=== PATIENT | male | born 1980 | race Caucasian/White ===

== ENCOUNTER 2017-03-20 13:06 | Emergency (ER) | payer SELFPAY | END 2017-03-20 13:16 | disposition left against medical advice (07) | LOC: C.EDB 13:07 | DX: F10.239 Alcohol dependence with withdrawal, unspecified (principal) ==

== ENCOUNTER 2017-11-26 12:31 | Emergency (ER) | payer SELFPAY ==
[~2017-11-26] VITALS: Ht 172.7 cm; Wt 76.5 kg
[~2017-11-26 12:31] MED LIST: NRN/300 PO
[2017-11-26] MEDS ORDERED: SODIUM CHLORIDE 0.9% 1000ML 1,000 ML IV STA (12:48)
[2017-11-26] MEDS ORDERED: MULTI-VITAMIN INFUSION INJ 10 ML, THIAMINE HCL INJ 100 MG, FoLIC ACID INJ 1 MG in SODIU... IV STA (12:48)
--- NOTE | 2017-11-26 12:48 | EMERGENCY ROOM VISIT NOTE ---
History Report prepared by Herminio: Roman Sumner Under the Supervision of: Dr. Stoney Wells M.D. First contact with patient: 12:34 Stated Complaint: ILLNESS History of Present Illness The patient is a 37 year old male with a history of alcohol abuse who presents to the Emergency Room via EMS with complaints of a persistent illness that started yesterday. He states that he has had a generalized illness, with nausea , vomiting, as well as congestion. He says that he has had diarrhea for the past week and a half. The patient notes that he was "beyond nauseated last night ", and had projectile vomiting. He states that he drinks about a gallon of vodka per day, and drank around 3/4ths of a gallon earlier this morning. He notes that his left hand went numb prior to arrival, so he called EMS. The patient states that he called, and then stood up and passed out. The patient's noted that the patient was unresponsive at that time, per the nursing staff. The patient notes that he has tried to stop drinking alcohol before, but has had withdrawal symptoms including seizures. He has been hospitalized for this before. The patient adds that he has no chronic medical conditions, but does have a history of pancreatitis. He says that he does not take any daily medications. The patient is a smoker. He notes no recent antibiotic use. Source of History: patient, nursing staff Onset: Yesterday Position: other (global) Quality: other (illness) Timing: other (persistent) Associated Symptoms: + LOC, + nausea, + vomiting, + diarrhea, + numbness ( left hand) Note: Associated symptoms: Congestion. Review of Systems See HPI for pertinent positives and negatives. A total of ten systems were reviewed and were otherwise negative. Past Medical & Surgical Medical Problems: (1) Alcohol Abuse-Unspec Family History No pertinent family history Social History Smoking Status: Current Every Day Smoker Alcohol Use: heavy Drug Use: none Marital Status: Housing Status: lives with family Occupation Status: employed Current/Historical Medications Scheduled Famotidine (Pepcid), 20 MG PO BID Ondasetron Odt (Zofran Odt), 4 MG SL Q6H Allergies Coded Allergies: Chlordiazepoxide (Verified Adverse Reaction, Unknown, DELIRIUM, 11/26/17) Physical Exam Vital Signs Date Time Temp Pulse Resp B/P (MAP) Pulse Ox O2 Delivery O2 Flow Rate FiO2 11/26/17 16:21 106 18 132/87 98 11/26/17 14:44 91 20 122/96 95 Room Air 11/26/17 14:01 75 16 129/81 99 Room Air 11/26/17 12:50 37.1 88 20 144/92 98 Room Air 11/26/17 12:45 96 Physical Exam GENERAL: Awake, alert, fatigued-appearing, in no distress HENT: Normocephalic, atraumatic. Dry mucous membranes. No evidence of tongue biting. EYES: Horizontal nystagmus. Normal conjunctiva. Sclera non-icteric. NECK: Supple. No nuchal rigidity. FROM. No JVD. RESPIRATORY: Clear to auscultation. CARDIAC: Regular rate, normal rhythm. Extremities warm and well perfused. Pulses equal. ABDOMEN: Soft, non-distended. No tenderness to palpation. No rebound or guarding. No masses. RECTAL: Deferred. MUSCULOSKELETAL: Chest examination reveals no tenderness. The back is symmetrical on inspection without obvious abnormality. There is no CVA tenderness to palpation. No joint edema. LOWER EXTREMITIES: Calves are equal size bilaterally and non-tender. No edema. No discoloration. NEURO: Normal sensorium. No sensory or motor deficits noted. Normal cerebellar function with [id number], alternating palms, [id number]-[id number] SKIN: No rash or jaundice noted. Medical Decision & Procedures ER Provider Diagnostic Interpretation: Radiology results as stated below per my review and radiologist interpretation: CT HEAD WITHOUT CONTRAST (CT) CLINICAL HISTORY: syncope COMPARISON STUDY: 09/20/2014 TECHNIQUE: Axial CT of the brain is performed from the vertex to the skull base. IV contrast was not administered for this examination. A dose lowering technique was utilized adhering to the principles of ALARA. CT DOSE: 537.48 mGy.cm FINDINGS: No intra or extra-axial mass lesions are visualized. There is no CT evidence of acute cortical infarction. There is no evidence of midline shift. There is no acute hemorrhage. No calvarial fractures are visualized. There are patchy white matter hypodensities likely on a small vessel basis. There is no evidence of pathologic ventricular dilatation. There is minor bilateral maxilla sinus mucosal thickening. There is moderate mucosal disease within the ethmoid sinuses. IMPRESSION: No acute intracranial findings Electronically signed by: Christian Ernst M.D. 11/26/2017 1:30 PM Dictated Date/Time: 11/26/2017 1:29 PM CHEST ONE VIEW PORTABLE CLINICAL HISTORY: Pain, radiating to the abdomen. COMPARISON STUDY: 05/15/2017 FINDINGS: The cardiac and mediastinal contours are normal. There is no evidence of focal pulmonary consolidation. There is no evidence of failure. No pleural effusions are visualized.[ No free intraperitoneal air is visualized. There is an old left distal clavicular deformity. IMPRESSION: No active disease in the chest. Electronically signed by: Christian Ernst M.D. 11/26/2017 1:10 PM Dictated Date/Time: 11/26/2017 1:10 PM Laboratory Results 11/26/17 13:05 Red Blood Count 4.47, Mean Corpuscular Volume 93.3, Mean Corpuscular Hemoglobin 32.9, Mean Corpuscular Hemoglobin Concent 35.3, Mean Platelet Volume 8.4, Neutrophils (%) (Auto) 47.7, Lymphocytes (%) (Auto) 43.3, Monocytes (%) (Auto) 6.1, Eosinophils (%) (Auto) 2.3, Basophils (%) (Auto) 0.3, Neutrophils # (Auto) 4.38, Lymphocytes # (Auto) 3.98, Monocytes # (Auto) 0.56, Eosinophils # (Auto) 0.21, Basophils # (Auto) 0.03 11/26/17 13:05 Test 11/26/17 13:05 White Blood Count 9.19 K/uL (4.8-10.8) Red Blood Count 4.47 M/uL (4.7-6.1) Hemoglobin 14.7 g/dL (14.0-18.0) Hematocrit 41.7 % (42-52) Mean Corpuscular Volume 93.3 fL (80-100) Mean Corpuscular Hemoglobin 32.9 pg (25-34) Mean Corpuscular Hemoglobin Concent 35.3 g/dl (32-36) Platelet Count 354 K/uL (130-400) Mean Platelet Volume 8.4 fL (7.4-10.4) Neutrophils (%) (Auto) 47.7 % Lymphocytes (%) (Auto) 43.3 % Monocytes (%) (Auto) 6.1 % Eosinophils (%) (Auto) 2.3 % Basophils (%) (Auto) 0.3 % Neutrophils # (Auto) 4.38 K/uL (1.4-6.5) Lymphocytes # (Auto) 3.98 K/uL (1.2-3.4) Monocytes # (Auto) 0.56 K/uL (0.11-0.59) Eosinophils # (Auto) 0.21 K/uL (0-0.5) Basophils # (Auto) 0.03 K/uL (0-0.2) RDW Standard Deviation 48.1 fL (36.4-46.3) RDW Coefficient of Variation 14.1 % (11.5-14.5) Immature Granulocyte % (Auto) 0.3 % Immature Granulocyte # (Auto) 0.03 K/uL (0.00-0.02) Prothrombin Time 10.3 SECONDS (9.0-12.0) Prothromb Time International Ratio 1.0 (0.9-1.1) Anion Gap 14.0 mmol/L (3-11) Est Creatinine Clear Calc Drug Dose 95.0 ml/min Estimated GFR () 107.6 Estimated GFR (Non- 92.8 BUN/Creatinine Ratio 6.5 (10-20) Calcium Level 8.1 mg/dl (8.5-10.1) Magnesium Level 2.1 mg/dl (1.8-2.4) Total Bilirubin 0.4 mg/dl (0.2-1) Direct Bilirubin < 0.1 mg/dl (0-0.2) Aspartate Amino Transf (AST/SGOT) 26 U/L (15-37) Alanine Aminotransferase (ALT/SGPT) 27 U/L (12-78) Alkaline Phosphatase 45 U/L (45-117) Troponin I < 0.015 ng/ml (0-0.045) Total Protein 7.1 gm/dl (6.4-8.2) Albumin 3.7 gm/dl (3.4-5.0) Lipase 527 U/L (73-393) Ethyl Alcohol mg/dL 315.0 mg/dl (0-3) Laboratory results reviewed by me Medications Administered Medications (Trade) Dose Ordered Sig/Guille Route Start Time Stop Time Status Last Admin Dose Admin Multivitamins 10 ml/Thiamine HCl 100 mg/Folic Acid 1 mg/Sodium Chloride 1,011.2 ml @ 500 mls/ hr Q2H2M STAT IV 11/26/17 12:48 11/26/17 14:49 DC 11/26/17 13:32 500 MLS/HR Sodium Chloride 1,000 ml @ 999 mls/hr Q1H1M STAT IV 11/26/17 12:48 11/26/17 13:48 DC 11/26/17 14:00 999 MLS/HR Lorazepam (Ativan Tab) 1 mg NOW STAT PO 11/26/17 12:55 11/26/17 12:56 DC 11/26/17 13:21 1 MG Nicotine (Nicoderm Cq 21MG Patch) 1 patch NOW STAT TD 11/26/17 12:55 11/26/17 12:56 DC 11/26/17 13:21 1 PATCH Lorazepam (Ativan Tab) 1 mg NOW STAT PO 11/26/17 14:27 11/26/17 14:28 DC 11/26/17 14:44 1 MG Diazepam (Valium Tab) 5 mg NOW STAT PO 11/26/17 15:35 11/26/17 15:36 DC 11/26/17 16:14 5 MG ECG Per My Interpretation Indication: nausea Rate (beats per minute): 84 Rhythm: normal sinus Findings: no acute ischemic change, other (sinus arrhythmia, normal axis) ED Course 1242: The patient was evaluated in room A3. A complete history and physical exam was performed. 1517: I reevaluated the patient and he is resting comfortably. Discussed results and discharge instructions: he verbalized understanding and agreement. The patient is ready for discharge. Medical Decision I reviewed the patient's past medical history, medications, and the nursing notes as described above. Differential diagnosis: Etiologies such as vasovagal event, infection, hypoglycemia, electrolyte abnormalities, cardiac sources, intracerebral event, toxicologic, neurologic, as well as others were entertained. The patient is a 37-year-old gentleman with a past medical history of alcohol abuse, history of alcohol withdrawal and alcohol withdrawal seizures who presents emergency department after having syncopal episode in the setting of feeling chest pain left arm numbness per hpi. On arrival the patient is fatigued appearing but no acute distress, afebrile stable vital signs. Neuro intact. He does have the odor of alcohol and reports drinking more than a liter of vodka daily. Lipase marginally elevated in the 500s. Otherwise labs unremarkable including WBC and troponin within normal limits. Chest x-ray and CT head negative. Patient feeling improved after IV fluids, banana bag, oral Ativan. I discussed with the patient that he has possible findings consistent with early pancreatitis which will likely only get worse with his continued alcohol use and thus recommended that the patient consider admission for further hydration and an acute alcohol withdrawal treatment with likely transition to detox facility. However, patient is equivocal about being interested in detox and is also concerned about being admitted and not having insurance. Prefers discharge. In ED no gross evidence of etoh withdrawal other than restlessness as patient arrive with etoh in 300s however given several doses of benzos to help with likely eventual withdrawal sx. I emphasized that the patient should not stop drinking abruptly on his own rather he should seek detox and f/u with [facility] to repeat his lipase and reassess his sx. Findings and plan for follow-up reviewed with patient and at bedside. Patient and agreeable and d/c'd per discharge instructions. Medication Reconcilliation Current Medication List: was personally reviewed by me Blood Pressure Screening Patient's blood pressure: Elevated blood pressure Blood pressure disposition: Elevated BP felt to be situational Impression Primary Impression: Alcohol abuse Additional Impressions: Alcohol withdrawal Elevated lipase Syncope Dehydration Scribe Attestation The scribe's documentation has been prepared under my direction and personally reviewed by me in its entirety. I confirm that the note above accurately reflects all work, treatment, procedures, and medical decision making performed by me. Departure Information Dispostion Home / Self-Care Prescriptions Famotidine (PEPCID) 20 Mg Tab 20 MG PO BID for 7 Days, #14 TAB Prov: Stoney Wells M.D. 11/26/17 Ondasetron Odt (ZOFRAN ODT) 4 Mg Tab 4 MG SL Q6H for Nausea, #10 TAB Prov: Stoney Wells M.D. 11/26/17 Referrals Davy Garvin D.OLewis (PCP) Patient Instructions ED Alcohol Abuse, ED Alcohol Intoxication, ED Dehydration, ED Pancreatitis, ED Withdrawal Alcohol, Lipase, My [facility], Syncope Causes Additional Instructions Please follow up with [facility] to establish primary care physician in the next 1-3 days for re-evaluation and to repeat your lipase level that was elevated today in the 500s. You symptoms today are most likely due to your alcohol abuse/withdrawal and associated dehydration. You should seriously consider stopping your alcohol use but you SHOULD NOT STOP ABRUPTLY as this can provoke seizures. Rather wean your use until you are able to enter into a rehab program. Zofran for nausea as needed. Pepcid as needed for GI upset/acid reduction for possible gastritis related to your alcohol abuse. Drink plenty of fluids to ensure hydration. Return to the emergency department for worsening symptoms as described in the accompanying instructions. Problem Qualifiers
[2017-11-26 12:50] VITALS: TEMP 37.1; Ht 172.7 cm; Wt 76.5 kg
[2017-11-26] MEDS ORDERED: NICOTINE 21 MG/24 HR TDSY TD STA (12:55)
[2017-11-26] MEDS ORDERED: LORAZEPAM 1 MG TAB PO STA ×2 (12:55→14:27)
--- NOTE | 2017-11-26 13:12 | DIAGNOSTIC IMAGING REPORT ---
CHEST ONE VIEW PORTABLE CLINICAL HISTORY: Pain, radiating to the abdomen. COMPARISON STUDY: 05/15/2017 FINDINGS: The cardiac and mediastinal contours are normal. There is no evidence of focal pulmonary consolidation. There is no evidence of failure. No pleural effusions are visualized.[ No free intraperitoneal air is visualized. There is an old left distal clavicular deformity. IMPRESSION: No active disease in the chest. Electronically signed by: Christian Ernst M.D. 11/26/2017 1:10 PM Dictated Date/Time: 11/26/2017 1:10 PM
[2017-11-26 13:22] LABS: BASO % 0.3 %; BASO ABS # 0.03 K/uL (0-0.2); EOS % 2.3 %; EOS ABS # 0.21 K/uL (0-0.5); HEMATOCRIT 41.7 % (42-52); HEMOGLOBIN 14.7 g/dL (14.0-18.0); IG# 0.03 K/uL (0.00-0.02); LYMPH % 43.3 %; LYMPH ABS # 3.98 K/uL (1.2-3.4); MEAN CELL VOLUME 93.3 fL (80-100); MEAN CORPUSCULAR HEMOGLOBIN 32.9 pg (25-34); MEAN CORPUSCULAR HGB CONC 35.3 g/dl (32-36); MEAN PLATELET VOLUME 8.4 fL (7.4-10.4); MONO % 6.1 %; MONO ABS # 0.56 K/uL (0.11-0.59); NEUT % 47.7 %; NEUT ABS # 4.38 K/uL (1.4-6.5); PLATELET COUNT 354 K/uL (130-400); RED CELL DISTRIBUTION WIDTH CV 14.1 % (11.5-14.5); RED CELL DISTRIBUTION WIDTH SD 48.1 fL (36.4-46.3); WHITE BLOOD COUNT 9.19 K/uL (4.8-10.8)
--- NOTE | 2017-11-26 13:31 | DIAGNOSTIC IMAGING REPORT ---
CT HEAD WITHOUT CONTRAST (CT) CLINICAL HISTORY: syncope COMPARISON STUDY: 09/20/2014 TECHNIQUE: Axial CT of the brain is performed from the vertex to the skull base. IV contrast was not administered for this examination. A dose lowering technique was utilized adhering to the principles of ALARA. CT DOSE: 537.48 mGy.cm FINDINGS: No intra or extra-axial mass lesions are visualized. There is no CT evidence of acute cortical infarction. There is no evidence of midline shift. There is no acute hemorrhage. No calvarial fractures are visualized. There are patchy white matter hypodensities likely on a small vessel basis. There is no evidence of pathologic ventricular dilatation. There is minor bilateral maxilla sinus mucosal thickening. There is moderate mucosal disease within the ethmoid sinuses. IMPRESSION: No acute intracranial findings Electronically signed by: Christian Ernst M.D. 11/26/2017 1:30 PM Dictated Date/Time: 11/26/2017 1:29 PM
[2017-11-26 13:42] LABS: ALBUMIN 3.7 gm/dl (3.4-5.0); ALKALINE PHOSPHATASE 45 U/L (45-117); ALT/SGPT 27 U/L (12-78); AST/SGOT 26 U/L (15-37); BLOOD UREA NITROGEN 7 mg/dl (7-18); CALCIUM 8.1 mg/dl (8.5-10.1); CARBON DIOXIDE 22 mmol/L (21-32); CREATININE 1.02 mg/dl (0.60-1.40); GLUCOSE 98 mg/dl (70-99); LIPASE 527 U/L (73-393); POTASSIUM 3.6 mmol/L (3.5-5.1); SODIUM 143 mmol/L (136-145); TOTAL PROTEIN 7.1 gm/dl (6.4-8.2)
[2017-11-26] MEDS ORDERED: FAMO20TA9 PO (15:29)
[2017-11-26] MEDS ORDERED: ONDA4TAB10 SL (15:29)
[2017-11-26] MEDS ORDERED: DIAZEPAM 5MG TAB PO STA (15:35)
[2017-11-26 16:21] VITALS: BP 132/87; PULSE 106; O2SAT 98
== END 2017-11-26 16:21 | disposition home or self-care (01) ==
LOC: EDBD 12:31 → C.EDA 12:32
DX: F10.239 Alcohol dependence with withdrawal, unspecified (principal); R74.8 Abnormal levels of other serum enzymes; R55 Syncope and collapse; E86.0 Dehydration; F17.200 Nicotine dependence, unspecified, uncomplicated; Z88.8 Allergy status to other drugs, medicaments and biological substances

== ENCOUNTER 2023-12-19 15:29 | Inpatient (IN) ==
[2023-12-19 16:30] LABS: Appearance Urine Clear (Clear); Bacteria Urine Automated None Seen (None Seen); Bilirubin Urine Negative (Negative); Blood Urine Trace (Negative); Cast Urine Automated 0-2 /lpf (0-2); Color Urine Yellow; Epithelial Cell Urine Auto 0-2 /hpf (0-2); Glucose Urine UA Negative (Negative); Ketones Urine Negative (Negative); Leukocyte Esterase Urine Negative (Negative); Nitrite Urine Negative (Negative); Protein Urine Negative (Negative); RBC Urine Automated 0-2 /hpf (0-2); Specific Gravity Urine 1.005 (1.000-1.030); Urobilinogen Urine Negative (Negative); WBC Urine Automated 0-5 /hpf (0-5); pH Urine 7.5 (4.5-7.5)
[2023-12-19 16:48] LABS: Amphetamines+Metham, Urine Neg (Neg); Barbiturates, Urine Neg (Neg); Benzodiazepine, Urine Neg (Neg); Cocaine, Urine Neg (Neg); Fentanyl, Urine Neg (Neg); MDMA (Ecstacy), Urine Neg (Neg); Marijuana, Urine Neg (Neg); Methadone, Urine Neg (Neg); Opiate, Urine Neg (Neg); Phencyclidine, Urine Neg (Neg)
[2023-12-19 16:49] LABS: Basophils # (auto) 0.05 K/uL (0.00-0.20); Basophils % (auto) 0.7 %; Eosinophils # (auto) 0.04 K/uL (0.00-0.50); Eosinophils % (auto) 0.6 %; Hematocrit (blood only) 42.9 % (42.0-52.0); Immature Granulocytes # (auto) 0.01 K/uL (0.01-0.20); Immature Granulocytes % (auto) 0.1 %; Lymphocytes # (auto) 2.54 K/uL (1.20-3.40); Lymphocytes % (auto) 34.9 %; Mean Corpuscular Hemoglobin 32.7 pg (25.0-34.0); Mean Corpuscular Volume 93.5 fL (80.0-100.0); Mean Platelet Volume 8.5 fL (9.4-12.4); Monocytes # (auto) 0.57 K/uL (0.11-0.59); Monocytes % (auto) 7.8 %; Neutrophils # (auto) 4.06 K/uL (1.40-6.50); Neutrophils % (auto) 55.9 %; Platelet Count 307 K/uL (130-400); RDW Coefficient of Variation 13.3 % (11.5-14.5); RDW Standard Deviation 45.4 fL (36.4-46.3); Red Blood Count 4.59 M/uL (4.70-6.10); White Blood Count 7.27 K/ul (4.8-10.8)
[2023-12-19 17:05] LABS: Albumin Globulin Ratio 1.8 (0.9-2); Albumin Level 4.8 gm/dl (3.4-5.0); Bilirubin,Total 0.6 mg/dl (0.2-1.0); Calcium 9.3 mg/dl (8.6-10.3); Creatinine Clr Calc Pharmacy 127.7 ml/min; Est GFR (African American) 133.8 ml/min; Est GFR (Non-African American) 115.5 ml/min; Globulin 2.7 gm/dl (2.5-4.0); Potassium 3.7 mmol/L (3.5-5.1); Total Protein 7.5 gm/dl (6.0-8.3)
[2023-12-19 17:19] LABS: Thyroid Stimulating Hormone 2.434 uIu/ml (0.300-4.500)
[2023-12-19 17:24] LABS: Acetaminophen < 3 ug/ml (10-30); Salicylate < 3.0 mg/dl (3.0-30)
[2023-12-19] MEDS: ONDANSETRON INJ 2 MG/ML 2 ML VIAL IV STA ×2 (17:35→20:49)
--- NOTE | 2023-12-19 18:22 | Emergency Department Note ---
History of Present Illness General Chief complaint: Mental Health Evaluation Stated complaint: MENTAL HEALTH EVALUATION Time Seen by Provider: 12/19/23 16:01 History of Present Illness Provider complaint: Mental health evaluation 43-year-old male presents emergency department via police for mental health evaluation. Patient family member recently called the police stating that the patient was drunk and threatening to shoot himself in the head. Patient reports he drank a liter and a half of vodka at 2 PM today. He denies any falls. Home Medications Medication Instructions Recorded Confirmed Type No Known Home Medications 05/27/21 05/27/21 History Allergies Allergy/AdvReac Type Severity Reaction Status Date / Time chlordiazepoxide AdvReac Unknown DELIRIUM Verified 11/26/17 13:10 Past Med/Surg History Problem List (Updated 12/19/23 @ 22:23 by Koby Pace MD) Acute alcohol intoxication (Acute) Acute alcohol intoxication (Acute) Alcohol abuse (Acute) Alcohol abuse (Acute) Alcohol intoxication (Acute) Alcohol intoxication (Acute) Alcohol overdose (Acute) Alcohol withdrawal (Acute) Chest tightness (Acute) Homicidal ideation (Acute) Mood disorder (Acute) Nausea & vomiting (Acute) Pancreatitis (Acute) Pancreatitis (Acute) Rib fractures (Acute) Shortness of breath (Acute) Suicidal ideation (Acute) Social History Smoking Status: Current every day smoker Tobacco Type: Cigarettes Preferred Language: Filipino Feels Safe at Home: Hesitant to Answer Physical Exam Vital Signs Vital Signs - 24 hr 12/19/23 15:34 12/19/23 16:21 12/19/23 16:24 Temperature 36.7 C Temperature Source Temporal Artery Scan Pulse Rate 102 H 99 H 100 H Pulse Rate [Apical] Pulse Rate from SpO2 Sensor 100 H Respiratory Rate 19 21 18 Respiratory Effort / Characteristics Respiratory Depth Blood Pressure Blood Pressure [Left Arm] Blood Pressure Mean Blood Pressure Mean [Left Arm] Pulse Oximetry 98 97 Oxygen Delivery Method Room Air Sepsis Recent Fever Within 48 Hours No Sepsis New/Unexplained Change in Mental Status N/A Sepsis Action Taken by Nursing No Action Required 12/19/23 16:30 12/19/23 16:33 12/19/23 17:46 Temperature Temperature Source Pulse Rate 94 H 100 H Pulse Rate [Apical] Pulse Rate from SpO2 Sensor Respiratory Rate 22 Respiratory Effort / Characteristics Respiratory Depth Blood Pressure 135/89 Blood Pressure [Left Arm] Blood Pressure Mean 106 Blood Pressure Mean [Left Arm] Pulse Oximetry Oxygen Delivery Method Sepsis Recent Fever Within 48 Hours Sepsis New/Unexplained Change in Mental Status Sepsis Action Taken by Nursing 12/19/23 18:31 12/19/23 20:00 12/19/23 20:53 Temperature Temperature Source Pulse Rate 105 H Pulse Rate [Apical] 106 H 104 H Pulse Rate from SpO2 Sensor Respiratory Rate 20 16 18 Respiratory Effort / Characteristics Non-Labored Spontaneous Non-Labored Respiratory Depth Normal Normal Blood Pressure 127/69 Blood Pressure [Left Arm] 139/92 116/82 Blood Pressure Mean 88 Blood Pressure Mean [Left Arm] 107 93 Pulse Oximetry 97 98 98 Oxygen Delivery Method Room Air Room Air Room Air Sepsis Recent Fever Within 48 Hours Sepsis New/Unexplained Change in Mental Status Sepsis Action Taken by Nursing 12/19/23 22:00 Temperature Temperature Source Pulse Rate Pulse Rate [Apical] 98 H Pulse Rate from SpO2 Sensor Respiratory Rate 16 Respiratory Effort / Characteristics Spontaneous Respiratory Depth Normal Blood Pressure Blood Pressure [Left Arm] Blood Pressure Mean Blood Pressure Mean [Left Arm] Pulse Oximetry 97 Oxygen Delivery Method Room Air Sepsis Recent Fever Within 48 Hours Sepsis New/Unexplained Change in Mental Status Sepsis Action Taken by Nursing Physical Exam GENERAL: Patient smells of alcohol HENT: Exam performed. - Head: Normocephalic and atraumatic. EYES: Conjunctivae and EOM are normal. Right eye exhibits no discharge. Left eye exhibits no discharge. No scleral icterus. NECK: Normal range of motion. Neck supple. No JVD present. No pain on palpation of the C-spine. CV: Normal rate, regular rhythm, normal heart sounds and intact distal pulses. There is no peripheral edema. Palpable radial pulses bue. PULM/CHEST: Effort normal and breath sounds normal. No respiratory distress. No stridor. no wheezes. no rales. ABD: The abdomen is soft. There is no tenderness. NEURO: Motor and sensation grossly intact. SKIN: Skin is warm and dry. He is not diaphoretic. PSYCH: Patient appears intoxicated. Course Course 1601: The patient was evaluated in room A5. A complete history and physical exam was performed 1729: Vital signs stable. Labs within normal limits with the exception of a serum alcohol of 396.8. Patient will have psychiatric evaluation once he is sober. Patient placed in observation at this time. 2221: Vital signs stable. Patient will be medically cleared at 5 AM from his serum alcohol level and will then be eval by psychiatric cyanide case hardener. Case signed out to Dr. Greene Administered Medications Discontinued Medications Ondansetron HCl (Ondansetron Inj 2 Mg/Ml 2 Ml Vial) 4 mg IV NOW STA Stop: 12/19/23 17:31 Last Admin: 12/19/23 17:35 Dose: 4 mg Documented By: HS Ondansetron HCl (Ondansetron Inj 2 Mg/Ml 2 Ml Vial) 4 mg IV NOW STA Stop: 12/19/23 20:44 Last Admin: 12/19/23 20:49 Dose: 4 mg Documented By: ALCIRA Medical Decision Making Laboratory Data Attestation: I reviewed the patient's lab results. 12/19/23 16:20 12/19/23 16:20 Lab Results 12/19/23 12/19/23 Range/Units 16:09 16:20 WBC 7.27 (4.8-10.8) K/ul RBC 4.59 L (4.70-6.10) M/uL Hgb 15.0 (14.0-18.0) g/dl Hct 42.9 (42.0-52.0) % MCV 93.5 (80.0-100.0) fL MCH 32.7 (25.0-34.0) pg MCHC 35.0 (32.0-36.0) g/dL RDW Std Deviation 45.4 (36.4-46.3) fL RDW Coeff of Gonzalo 13.3 (11.5-14.5) % Plt Count 307 (130-400) K/uL MPV 8.5 L (9.4-12.4) fL Immature Gran % (Auto) 0.1 % Neut % (Auto) 55.9 % Lymph % (Auto) 34.9 % [place] % (Auto) 7.8 % Eos % (Auto) 0.6 % Baso % (Auto) 0.7 % Neut # (Auto) 4.06 (1.40-6.50) K/uL Lymph # (Auto) 2.54 (1.20-3.40) K/uL [place] # (Auto) 0.57 (0.11-0.59) K/uL Eos # (Auto) 0.04 (0.00-0.50) K/uL Baso # (Auto) 0.05 (0.00-0.20) K/uL Immature Gran # (Auto) 0.01 (0.01-0.20) K/uL Sodium 144 (136-145) mmol/L Potassium 3.7 (3.5-5.1) mmol/L Chloride 102 (98-107) mmol/L Carbon Dioxide 29 (21-32) mmol/L Anion Gap 13 H (3-11) BUN 9 (6-23) mg/dl Creatinine 0.69 (0.6-1.4) mg/dl Est Cr Clr Drug Dosing 127.7 ml/min Est GFR ( Amer) 133.8 ml/min Est GFR (Non-Af Amer) 115.5 ml/min BUN/Creatinine Ratio 13.0 (10-20) Glucose 127 H (70-99(Fasting)) mg/dl Calcium 9.3 (8.6-10.3) mg/dl Total Bilirubin 0.6 (0.2-1.0) mg/dl AST 39 (13-39) U/L ALT 25 (7-52) U/L Alkaline Phosphatase 42 (34-104) U/L Total Protein 7.5 (6.0-8.3) gm/dl Albumin 4.8 (3.4-5.0) gm/dl Globulin 2.7 (2.5-4.0) gm/dl Albumin/Globulin Ratio 1.8 (0.9-2) Lipase 102 H (11-82) U/L TSH 2.434 (0.300-4.500) uIu/ml Urine Color Yellow Urine Appearance Clear (Clear) Urine pH 7.5 (4.5-7.5) Ur Specific [place] 1.005 (1.000-1.030) Urine Protein Negative (Negative) Urine Glucose (UA) Negative (Negative) Urine Ketones Negative (Negative) Urine Blood Trace H (Negative) Urine Nitrite Negative (Negative) Urine Bilirubin Negative (Negative) Urine Urobilinogen Negative (Negative) Ur Leukocyte Esterase Negative (Negative) Urine WBC (Auto) 0-5 (0-5) /hpf Urine RBC (Auto) 0-2 (0-2) /hpf U Hyaline Cast (Auto) 0-2 (0-2) /lpf U Epithel Cells (Auto) 0-2 (0-2) /hpf Urine Bacteria (Auto) None Seen (None Seen) Salicylates < 3.0 L (3.0-30) mg/dl Urine Opiates Screen Neg (Neg) Ur Methadone, Qual Neg (Neg) Urine Fentanyl Screen Neg (Neg) Acetaminophen < 3 L (10-30) ug/ml Urine Barbiturates Neg (Neg) Ur Phencyclidine (PCP) Neg (Neg) U Amphetamin/Meth Scrn Neg (Neg) MDMA (Ecstasy) Screen Neg (Neg) U Benzodiazepines Scrn Neg (Neg) Ur Cocaine Metabolite Neg (Neg) U Marijuana (THC) Screen Neg (Neg) Ethyl Alcohol mg/dL 396.8 H (<10.0) mg/dl SARS-CoV-2, RNA, NAAT NEGATIVE (NEGATIVE) MDM Narrative 1601: The patient was evaluated in room A5. A complete history and physical exam was performed 1730: Vital signs stable. Labs within normal limits with the exception of a serum alcohol of 396.8. Patient will have psychiatric evaluation once he is sober. Patient placed in observation at this time. 2222: Vital signs stable. Patient will be medically cleared at 5 AM from his serum alcohol level and will then be eval by psychiatric cyanide case hardener. Case signed out to Dr. Greene Impression & Plan Acute alcohol intoxication, Suicidal ideation Discharge Plan Visit Data Chief Complaint: Mental Health Evaluation Stated Complaint: MENTAL HEALTH EVALUATION ED Provider: Koby Pace Discharge Problem: Acute alcohol intoxication, Suicidal ideation Patient Disposition: Still a Patient Forms Stand Alone Forms: [facility], Suicide Prevention Resources Prescriptions Prescriptions: No Action No Known Home Medications Referrals Referrals: PCP,NO [Primary Care Provider] -
--- NOTE | 2023-12-19 22:31 | Emergency Department Note ---
ED Visit Note The patient was taken in signout from from Dr. Pace at the change of shift. Please see that note for details. The patient was pending clearance of alcohol intoxication. He is going to be evaluated by mental health. Due to his intoxication he is reportedly cleared at 0500 hrs. and then will be evaluated the medical case manager. Patient did have some anxiety and shaking as he was sobering and does have a history of alcohol withdrawal. He was given a 2 mg and then a 1 mg dose of IV Ativan for symptom control. Patient's case was signed out to Dr. Cordon at the change of shift. I refer you to the EMR for further details. .
[2023-12-20] MEDS: LORazepam 1 MG/1 ML SYR ED Inj Use IV STA ×2 (00:13→01:23)
--- NOTE | 2023-12-20 02:14 | Emergency Department Note ---
ED Visit Note Patient is a 43-year-old male who was seen evaluated overnight by Dr. Pace and signed out to Dr. Acevedo. Throughout his stay he has received 3 mg of Ativan as he has started to withdrawal. He does have a history of alcohol abuse and alcohol intoxication. He stated that he was going to kill himself and shoot himself with a gun. He is here on a 302 warrant. Labs show no significant leukocytosis or anemia. BMP along with LFTs bilirubin and lipase is remarkable for a lipase of 102. UA was clean. Tox was negative. Alcohol was 396 upon arrival at 4 PM yesterday. As he is withdrawing and already receiving IV Ativan elected to discuss case with the hospitalist for further observation for alcohol withdrawal as patient is here on a 302 warrant. Patient was admitted with 302 warrant to be disapproved once patient is medically cleared. .
[2023-12-20] MEDS: MULTIVITAMIN TAB PO STA (02:41)
[2023-12-20] MEDS: FOLIC ACID 1 MG in SYRINGE 9.8 ML IV STA (02:42)
[2023-12-20] MEDS: THIAMINE HCL 100 MG in SYRINGE 9 ML IV STA (02:42)
[2023-12-20] MEDS ORDERED: Ativan IV Alcohol Withdrawal--Active Protocol IV PRN (04:05)
[2023-12-20] MEDS ORDERED: LORazepam 1 MG in SYRINGE 0.5 ML IV PRN (04:05)
[2023-12-20] MEDS ORDERED: LORazepam 2 MG in SYRINGE 1 ML IV PRN (04:05)
[2023-12-20] MEDS ORDERED: LORazepam 3 MG in SYRINGE 1.5 ML IV PRN (04:05)
--- NOTE | 2023-12-20 04:14 | History & Physical Report ---
Date of Service December 20, 2023 Assessment & Plan (1) Suicidal ideation: (2) Acute alcohol intoxication: (3) Alcohol abuse: (4) Mood disorder: Plan Suicidal ideation- Patient reportedly was brought to the emergency department by police on a 302 warrant, after family called with concerns regarding patient threatening to kill himself with a gun. Patient does not feel that he needs to be admitted in the hospital, however, he has not resistant One-to-one observation Consult psychiatry 302 continues Alcohol abuse/acute alcohol intoxication- Alcohol level 396.8 on admission, about 10 hours prior to my assessment Order repeat alcohol level, CBC with differential, chemistry profile and magnesium level AWSS protocol with IV Ativan Thiamine 100 mg IV every morning Folic acid 1 mg IV every morning Pantoprazole 40 mg IV daily History of Present Illness Chief Complaint: The patient was brought to the emergency department by police with a [address], due to family report of the patient threatening to kill himself with a gun at home. Primary Care Provider: NO PCP The patient is a 43-year-old male with a past medical history including alcohol abuse, homicidal ideation, suicidal ideation, mood disorder whose family called the police, and a 302 was placed, and the patient was brought to the ED for assessment. The patient was presented to the hospitalist service after still having symptoms 9 hours after arrival in the ED. He had received lorazepam 2 mg IV, then 1 mg IV, thiamine 100 mg IV and folate 1 mg IV. The patient felt that he did not need to be admitted in the hospital, however, decision was made for admission with 3O2 in place, and one-to-one observation. Patient was also found to have an alcohol level of 396.8 at 4 PM, about 10 hours before this assessment Allergies Allergy/AdvReac Type Severity Reaction Status Date / Time chlordiazepoxide AdvReac Unknown DELIRIUM Verified 11/26/17 13:10 Home Medications Medication Instructions Recorded Confirmed Type No Known Home Medications 05/27/21 12/20/23 History Past Med/Surg History Problem List (Updated 12/19/23 @ 22:23 by Koby Pace MD) Acute alcohol intoxication (Acute) Acute alcohol intoxication (Acute) Alcohol abuse (Acute) Alcohol abuse (Acute) Alcohol intoxication (Acute) Alcohol intoxication (Acute) Alcohol overdose (Acute) Alcohol withdrawal (Acute) Chest tightness (Acute) Homicidal ideation (Acute) Mood disorder (Acute) Nausea & vomiting (Acute) Pancreatitis (Acute) Pancreatitis (Acute) Rib fractures (Acute) Shortness of breath (Acute) Suicidal ideation (Acute) Social History Smoking Status: Current every day smoker Tobacco Type: Cigarettes Preferred Language: Slovak Feels Safe at Home: Hesitant to Answer Review of Systems Review of Systems: The patient denies chest pain, palpitations, shortness of breath, dyspnea on exertion, cough, lower extremity swelling, sore throat, fevers, chills, sweats, nausea, vomiting, diarrhea , constipation, abdominal pain, pelvic pain, blood in urine or stool, dysuria, urinary frequency or urgency, loss of consciousness, rash, abnormal bruising or bleeding, imbalance, focal or generalized weakness, numbness or tingling in arms or legs, back or neck pain, or night sweats. The review of systems is otherwise negative other than for that already noted above, and at least 10 systems have been reviewed. Physical Exam Physical Exam: The patient is awake, alert and oriented 3, well developed and well nourished, normocephalic and atraumatic, lying in bed and in no acute distress. HEENT--PERRL, EOMI, mucous membranes and oropharynx dry. Neck--supple. No JVD. No bruits. Thyroid normal, trachea midline, no adenopathy. Heart--normal S1 and S2. No murmurs, rubs or gallops. Lungs--clear bilaterally, no respiratory distress, no accessory muscle use. Abdomen--normal bowel sounds and soft. Nontender. Nondistended, no hernias or masses, no organomegaly. Extremities--No edema. Dermatologic--normal skin turgor, normal color, no abnormal lymph nodes, no rash. Neurologic--cranial nerves II through XII grossly intact. Rheumatologic--normal range of motion. Psychiatric--normal affect. Results & Data Results & Data Vital Signs (Past 12 Hours) Vital Signs Pulse Pulse Resp BP BP Pulse Ox O2 Del Method 12/20/23 02:28 90 12/20/23 02:00 105 H 18 132/85 95 Room Air 12/20/23 01:00 101 H 20 135/72 95 Room Air 12/20/23 00:00 105 H 15 12/20/23 00:00 140/92 12/20/23 00:00 110 H 20 140/92 98 Room Air 12/19/23 23:30 101 H 15 97 12/19/23 23:27 87 15 96 12/19/23 22:33 101 H 16 12/19/23 22:32 101 H 12/19/23 22:06 101 H 18 12/19/23 22:00 98 H 16 97 Room Air 12/19/23 21:45 117 H 17 12/19/23 21:09 107 H 20 12/19/23 20:53 105 H 18 127/69 98 Room Air 12/19/23 20:48 117 H 18 12/19/23 20:00 111 H 19 12/19/23 20:00 104 H 16 116/82 98 Room Air 12/19/23 19:30 114 H 18 12/19/23 19:03 111 H 23 12/19/23 18:36 13 12/19/23 18:31 106 H 20 139/92 97 Room Air 12/19/23 17:46 100 H 12/19/23 16:33 94 H 22 12/19/23 16:30 135/89 12/19/23 16:24 100 H 18 97 12/19/23 16:21 99 H 21 Laboratory Results Laboratory Results WBC 7.27 K/ul (4.8-10.8) 12/19/23 16:20 RBC 4.59 M/uL (4.70-6.10) L 12/19/23 16:20 Hgb 15.0 g/dl (14.0-18.0) 12/19/23 16:20 Hct 42.9 % (42.0-52.0) 12/19/23 16:20 MCV 93.5 fL (80.0-100.0) 12/19/23 16:20 MCH 32.7 pg (25.0-34.0) 12/19/23 16:20 MCHC 35.0 g/dL (32.0-36.0) 12/19/23 16:20 RDW Std Deviation 45.4 fL (36.4-46.3) 12/19/23 16:20 RDW Coeff of Gonzalo 13.3 % (11.5-14.5) 12/19/23 16:20 Plt Count 307 K/uL (130-400) 12/19/23 16:20 MPV 8.5 fL (9.4-12.4) L 12/19/23 16:20 Immature Gran % (Auto) 0.1 % 12/19/23 16:20 Neut % (Auto) 55.9 % 12/19/23 16:20 Lymph % (Auto) 34.9 % 12/19/23 16:20 [place] % (Auto) 7.8 % 12/19/23 16:20 Eos % (Auto) 0.6 % 12/19/23 16:20 Baso % (Auto) 0.7 % 12/19/23 16:20 Neut # (Auto) 4.06 K/uL (1.40-6.50) 12/19/23 16:20 Lymph # (Auto) 2.54 K/uL (1.20-3.40) 12/19/23 16:20 [place] # (Auto) 0.57 K/uL (0.11-0.59) 12/19/23 16:20 Eos # (Auto) 0.04 K/uL (0.00-0.50) 12/19/23 16:20 Baso # (Auto) 0.05 K/uL (0.00-0.20) 12/19/23 16:20 Immature Gran # (Auto) 0.01 K/uL (0.01-0.20) 12/19/23 16:20 Sodium 144 mmol/L (136-145) 12/19/23 16:20 Potassium 3.7 mmol/L (3.5-5.1) 12/19/23 16:20 Chloride 102 mmol/L (98-107) 12/19/23 16:20 Carbon Dioxide 29 mmol/L (21-32) 12/19/23 16:20 Anion Gap 13 (3-11) H 12/19/23 16:20 BUN 9 mg/dl (6-23) 12/19/23 16:20 Creatinine 0.69 mg/dl (0.6-1.4) 12/19/23 16:20 Est Cr Clr Drug Dosing 127.7 ml/min 12/19/23 16:20 Est GFR ( Amer) 133.8 ml/min 12/19/23 16:20 Est GFR (Non-Af Amer) 115.5 ml/min 12/19/23 16:20 BUN/Creatinine Ratio 13.0 (10-20) 12/19/23 16:20 Glucose 127 mg/dl (70-99(Fasting)) H 12/19/23 16:20 Calcium 9.3 mg/dl (8.6-10.3) 12/19/23 16:20 Total Bilirubin 0.6 mg/dl (0.2-1.0) 12/19/23 16:20 AST 39 U/L (13-39) 12/19/23 16:20 ALT 25 U/L (7-52) 12/19/23 16:20 Alkaline Phosphatase 42 U/L (34-104) 12/19/23 16:20 Total Protein 7.5 gm/dl (6.0-8.3) 12/19/23 16:20 Albumin 4.8 gm/dl (3.4-5.0) 12/19/23 16:20 Globulin 2.7 gm/dl (2.5-4.0) 12/19/23 16:20 Albumin/Globulin Ratio 1.8 (0.9-2) 12/19/23 16:20 Lipase 102 U/L (11-82) H 12/19/23 16:20 TSH 2.434 uIu/ml (0.300-4.500) 12/19/23 16:20 Urine Color Yellow 12/19/23 16:09 Urine Appearance Clear (Clear) 12/19/23 16:09 Urine pH 7.5 (4.5-7.5) 12/19/23 16:09 Ur Specific [place] 1.005 (1.000-1.030) 12/19/23 16:09 Urine Protein Negative (Negative) 12/19/23 16:09 Urine Glucose (UA) Negative (Negative) 12/19/23 16:09 Urine Ketones Negative (Negative) 12/19/23 16:09 Urine Blood Trace (Negative) H 12/19/23 16:09 Urine Nitrite Negative (Negative) 12/19/23 16:09 Urine Bilirubin Negative (Negative) 12/19/23 16:09 Urine Urobilinogen Negative (Negative) 12/19/23 16:09 Ur Leukocyte Esterase Negative (Negative) 12/19/23 16:09 Urine WBC (Auto) 0-5 /hpf (0-5) 12/19/23 16:09 Urine RBC (Auto) 0-2 /hpf (0-2) 12/19/23 16:09 U Hyaline Cast (Auto) 0-2 /lpf (0-2) 12/19/23 16:09 U Epithel Cells (Auto) 0-2 /hpf (0-2) 12/19/23 16:09 Urine Bacteria (Auto) None Seen (None Seen) 12/19/23 16:09 Salicylates < 3.0 mg/dl (3.0-30) L 12/19/23 16:20 Urine Opiates Screen Neg (Neg) 12/19/23 16:09 Ur Methadone, Qual Neg (Neg) 12/19/23 16:09 Urine Fentanyl Screen Neg (Neg) 12/19/23 16:09 Acetaminophen < 3 ug/ml (10-30) L 12/19/23 16:20 Urine Barbiturates Neg (Neg) 12/19/23 16:09 Ur Phencyclidine (PCP) Neg (Neg) 12/19/23 16:09 U Amphetamin/Meth Scrn Neg (Neg) 12/19/23 16:09 MDMA (Ecstasy) Screen Neg (Neg) 12/19/23 16:09 U Benzodiazepines Scrn Neg (Neg) 12/19/23 16:09 Ur Cocaine Metabolite Neg (Neg) 12/19/23 16:09 U Marijuana (THC) Screen Neg (Neg) 12/19/23 16:09 Ethyl Alcohol mg/dL < 10.0 mg/dl (<10.0) 12/20/23 04:59 SARS-CoV-2, RNA, NAAT NEGATIVE (NEGATIVE) 12/19/23 16:20 Code Status & VTE Plan Code Status Full code VTE Prophylaxis Plan VTE Prophylaxis will be ordered: Yes PG Care Time/CCT Total # of Minutes Spent Total Time Spent with Patient: Total time spent is greater than 50% in coordination of care (as documented) at patient's floor/unit and/or counseling patient: Coding Level of Care Code 26166 INT INP/OBS CARE 3/75MIN Diagnoses Suicidal ideation R45.851 Acute alcohol intoxication F10.929 Alcohol abuse F10.10 Mood disorder F39
[2023-12-20] MEDS ORDERED: ONDANSETRON INJ 2 MG/ML 2 ML VIAL IV PRN (05:06)
[2023-12-20] MEDS ORDERED: ACETAMINOPHEN 1000 MG/100 ML IV IV PRN (05:06)
[2023-12-20] MEDS ORDERED: ACETAMINOPHEN 1,000 MG/100 ML VIAL IV PRN (05:30)
[2023-12-20] MEDS: PANTOprazole 40 MG TAB PO SCH (08:29)
[2023-12-20] MEDS: THIAMINE HCL 100 MG TAB PO SCH (08:29)
[2023-12-20] MEDS: FOLIC ACID 1 MG TAB PO SCH (08:29)
--- NOTE | 2023-12-20 09:53 | Psychiatric Consultation ---
Date of Consultation December 20, 2023 Impression / Recommendations Impression Trevor is a 43 yo man with a history of alcohol use in sustained remission with recent relapse admitted medically. Diagnostically consistent with alcohol use disorder and likely statement of SI in context of adjustment disorder with depressed mood component from daughter moving vs secondary to alcohol disinhibition and intoxication. Now that he is sober he is adamantly and genuinely denying SI, future-oriented, states multiple reasons for living, denies any major mood symptoms, engaged in safety planning including adding crisis information to his phone and confirmed no access to guns at his home (his guns are now with his [id number] per psych liason's safety planning discussion with his daughter). Acute risk of self-harm is low given denial of SI and no longer with intoxication. Acute risk of harm to others is low given denial of HI, no evidence for behavioral dysregulation. Chronic risk of self- harm and harm to others is slightly increased due to substance use with substance use treatment being the most significant modifiable risk factor to reduce acute and chronic risk. He does not meet 302 criteria and therefore 302 warrant was dispositioned as he denies SI, HI, no katharine, no psychosis and able to care for all his basic needs and welfare. He declined options for voluntary treatment for dual diagnosis or residential treatment which was recommended given his significant alcohol use and high risk of alcohol withdrawal. Educated on risks of alcohol withdrawal, including already with emergence of tremor, which he states understanding of but desires no further medical hospitalization for this as he needs to get back to work. He decision making capacity regarding this desire to discharge. He is not interested in any outpatient services but understands county funding is available for this and accepted resource packet. He is interested in gabapentin to reduce risk of alcohol withdrawal seizures and naltrexone for alcohol use disorder, understands risk for liver damage and need to avoid use with opioids. Encouraged involvement with local primary care which he will consider. Overall, I spent a total of 80 minutes with this case including review of chart records, review of labwork, direct evaluation of the patient at bedside, counseling the patient, discussion of the patient with the ED CM and with the hospitalist provider, discussion with the psychiatric liason during clinical rounds, review of collateral historian information from the family, completion of 302 paperwork and documentation in the electronic health record. (1) Acute alcohol intoxication: (2) Alcohol use disorder: Plan -302 warrant dispositioned, he may discharge if desired -Patient is not an imminent danger to self or others and does not meet criteria for involuntary psychiatric commitment -Recommend: * Harm reduction using Gabapentin taper: 600 mg at bedtime for 3 days then 300 mg at bedtime for 2 more days then stop to reduce risk for alcohol withdrawal seizures, reviewed risk of fatal respiratory suppression if combined with alcohol use. * Naltrexone 50mg daily with dinner for alcohol use disorder Psych History Identifying Data 43 yo man with history of alcohol use, depression admitted medically for alcohol withdrawal. Psychiatry consulted for 302 warrant, risk assessment. Chief Complaint "I don't remember what I said, I was pretty intoxicated". History of Present Illness Trevor presented to the ED via police for mental health assessment after he called his ex- while intoxicated and reported SI about wanting to shoot himself. His daughter completed a 302 petition based on what her mother, Trevor's ex-, reported. His WESLEY was 396 on arrival to the ED and he reported consuming 1.5 liters of vodka at 2pm on 12/19/2023. This morning he now clinically sober and WESLEY is 0 and is oriented x3 and able to be assessed for need for emergent involuntary psychiatric treatment. He denies current SI and cannot recall making the statements the night before or why he made them. He notes he was "emotional" for one day because his step-daughter is moving to [place] and his grandson just graduated but otherwise denies any recent mood symptoms including no depression, no anxiety, no psychosis and no katharine. He denies any recent violent statements or wanting to hurt anyone. He thinks he made statement of SI due to being intoxicated. After these events states he knows he needs to stop drinking. He relapsed 2 months ago after 3 years of sobriety after going out with friends who were drinking and he thought "I can just have a few drinks but then it was off to the races". Since his relapse has been drinking 1-1.5 gallons of vodka every 1-1.5 days. Denies access to any guns at home. States strong reasons for living and deterrents to suicide as "I love my job, my kids, my , my pet". He is not interested in inpatient psychiatric treatment as feels his mood is good and denies any referrals for residential substance use treatment nor outpatient services. Psychiatric history notable for one prior inpatient psych admission at [facility] "7-8 years ago for depression". No prior suicide attempts. Allergies Allergy/AdvReac Type Severity Reaction Status Date / Time chlordiazepoxide AdvReac Unknown DELIRIUM Verified 11/26/17 13:10 Home Medications Medication Instructions Recorded Confirmed Type No Known Home Medications 05/27/21 12/20/23 History gabapentin 300 mg capsule See Rx Instructions .Route 12/20/23 Rx .COMPLEX 5 days #8 caps Patient History Social History Smoking Status: Current every day smoker Tobacco Type: Cigarettes Cigarettes Per Day: 20; Do You Dip or Chew Tobacco: No; Tobacco Cessation Education Requested by Patient: No Hx Alcohol Use: Yes Alcohol type: hard liquor Hx Substance Use: No Preferred Language: [place] Communication Ability: Effective World Geography Teacher Required: No Beliefs That Will Affect Care: None Current Living Situation: Alone Other Information That Helps Us Care for You: No Feels Safe at Home: Yes Safety Concerns: Feels Safe At This Time Assistive Devices: None Physical Exam Psychiatric: Orientation: alert, oriented x 3 and cooperative Apperance: appropriately dressed and appropriately groomed Eye Contact: good eye contact Motor Behavior: + tremor Speech: normal rate/rhythm/volume of speech Affect: + constricted affect Mood: no depressed mood and no anxious mood Thought Process: goal directed thought process Thought Content: reality based without delusions Suicidal Thoughts: denies suicidal thoughts, denies suicidal plan and denies suicidal intent Homicidal Thoughts: denies homicidal thoughts Hallucinations: no auditory hallucinations and no visual hallucinations Cognition: remote memory grossly intact, attention grossly intact and language grossly intact; + recent memory not intact (not surrounding events while drinking) Insight: + fair insight Judgment: + limited judgement Vital Signs (Past 24 Hours): Last Vital Signs Temp 36.5 C 12/20/23 06:05 Pulse 73 12/20/23 07:03 Resp 18 12/20/23 06:05 BP 142/87 H 12/20/23 06:05 Pulse Ox 97 12/20/23 06:05 O2 Del Method Room Air 12/20/23 06:05 Results & Data (PSY) Laboratory Results LFTs stable Medications Administered Folic Acid (Folic Acid 1 Mg Tab) 1 mg PO QAM ANGELIC Stop: 01/19/24 08:59 Last Admin: 12/20/23 08:29 Dose: 1 mg Documented By: ARTURO Pantoprazole Sodium (Pantoprazole 40 Mg Tab) 40 mg PO [facility] Stop: 01/19/24 08:59 Last Admin: 12/20/23 08:29 Dose: 40 mg Documented By: ARTURO Thiamine HCl (Thiamine Hcl 100 Mg Tab) 100 mg PO [facility] Stop: 01/19/24 08:59 Last Admin: 12/20/23 08:29 Dose: 100 mg Documented By: ARTURO Coding Level of Care Code 56540 IN/OBS CONSULT LVL 5,80M Diagnoses Acute alcohol intoxication F10.929 Alcohol use disorder F10.90
--- NOTE | 2023-12-20 10:21 | Discharge Summary ---
Date of Service December 20, 2023 Admission HPI Per Admitting Provider The patient is a 43-year-old male with a past medical history including alcohol abuse, homicidal ideation, suicidal ideation, mood disorder whose family called the police, and a 302 was placed, and the patient was brought to the ED for assessment. The patient was presented to the hospitalist service after still having symptoms 9 hours after arrival in the ED. He had received lorazepam 2 mg IV, then 1 mg IV, thiamine 100 mg IV and folate 1 mg IV. The patient felt that he did not need to be admitted in the hospital, however, decision was made for admission with 3O2 in place, and one-to-one observation. Patient was also found to have an alcohol level of 396.8 at 4 PM, about 10 hours before this assessment Principal Diagnosis Alcohol intoxication, suicidal ideation Discharge Exam General-alert and oriented x3, no fever, no chills HEENT-head atraumatic and normocephalic, pupils equal and reactive to light, e xtraocular muscles intact Neck-no lymphadenopathy or thyromegaly, trachea midline Chest-clear to auscultation. No rales, wheezing or rhonchi Cardiac-regular rate and rhythm, normal S1 and S2 Abdomen-normal bowel sounds, no hepatosplenomegaly Extremities-no cyanosis, clubbing, or edema Neuro-cranial nerves II through XII intact, motor and sensory function within normal limits, strength symmetrical, no focal deficits Psych-normal affect, normal mood Discharge Data Allergies Allergy/AdvReac Type Severity Reaction Status Date / Time chlordiazepoxide AdvReac Unknown DELIRIUM Verified 11/26/17 13:10 Consultations 12/20/23 02:33 ED Decision to Admit Stat 12/20/23 05:06 Consult Psychiatry Routine Hospital Course (1) Suicidal ideation: Occurred while he was intoxicated. This has now resolved. He has been seen by psychiatry and cleared for discharge to home (2) Acute alcohol intoxication: Resolved. Supportive care (3) Alcohol abuse: Recommend alcohol discontinuation (4) Mood disorder: Continue outpatient follow-up Plan Home today, December 19. He will remain on gabapentin as recommended by psychiatry for 5 days. Total Time Total Time Spent Total Time Spent (In Minutes): 45 minutes Discharge Plan Discharge Items Patient Disposition: Home - Self-Care Reason For Visit: SUICIDAL IDEATION,ALCOHOL INTOXICATION,ALCOHOL ABU Discharge Diagnosis: Suicidal ideation, alcohol intoxication Activity: Resume your previous activity Non-emergency contact: Primary Care Provider Call non-emergency contact if: you have any medication questions Follow-up/Referrals: PCP,NO [Primary Care Provider] - Diet: Regular Addtl Attending Provider Instructions: Take gabapentin 600 mg at bedtime for 3 days then 300 mg at bedtime for 2 more days then stop. Take naltrexone 50 mg daily at dinnertime. Prescriptions have been sent to [facility] pharmacy at [facility] Pending Studies at Discharge: No Stand-Alone Forms: My [facility], Smoking Cessation Medications and DC Order Prescriptions: New gabapentin 300 mg capsule See Rx Instructions .ROUTE .COMPLEX 5 Days Qty: 8 0RF Rx Instructions: 300 mg orally ;600 mg at bedtime for 3 days then 300 mg at bedtime for 2 more days then stop No Action No Known Home Medications Discharge Orders: Discharge Order (Routine); Ordered 12/20/23 Ordered By: Gatito Garcia Admission Data Admit Date/Time: 12/20/23 04:13 Attending Provider: Gatito Garcia Admit Provider: Dennis Reyes Primary Care Provider: PCP,NO Other Providers: Dennis Reyes; Echo Barnett; Burton Mao; Sebastian Garcia Jr; Gerri Harmon; Yoli Blackwell; Jeffery Ruiz Coding Level of Care Code 72432 INP/OBS DISCH >30 MIN Diagnoses Suicidal ideation R45.851 Acute alcohol intoxication F10.929 Alcohol abuse F10.10 Mood disorder F39
[2023-12-20] MEDS ORDERED: PANTOprazole 40 MG in SYRINGE 0 ML IV SCH (11:00)
== END 2023-12-20 10:40 | disposition home or self-care (01) | DRG 897 ==
LOC: ED 15:29 → EDINP 12-20 04:13 → SUATTDRO 12-20 04:13 → EDINP 12-20 05:07

== ENCOUNTER 2023-12-21 16:10 | Observation (INO) ==
--- NOTE | 2023-12-21 16:33 | ED Triage Note ---
Date of Service December 21, 2023 Provider in Triage Author: Bita Loredo History of Present Illness This patient was briefly evaluated while in triage. An abbreviated physical exam was performed. This patient is a 43-year-old Male who presents to the ED for evaluation of alcohol related symptoms. Last drank vodka and other hard liquor around 3pm today, unsure of amount. Brought in by his today who dropped him off. Complains of stomach pain. States also having tremors, denies history of withdrawal seizures. Denies suicidal thoughts/plan. Was just here 2 days ago for the same. Physical Exam CONSTITUTIONAL: No acute distress. Smells strongly of alcohol. RESPIRATORY: Clear to auscultation bilaterally. Equal expansion bilaterally. CARDIOVASCULAR: Regular rate and rhythm. GASTROINTESTINAL: Soft MUSCULOSKELETAL: Tremors arms and legs, unsteady gait. NEUROLOGIC: Alert and oriented. Initial orders for labs and / or imaging were placed and patient was taken to a room. Please see further documentation for the full ED course. MDM / Impression Impression Impression: Acute alcohol intoxication, Alcohol withdrawal
[2023-12-21] MEDS ORDERED: LORazepam 1 MG in SYRINGE 0.5 ML IV PRN ×2 (17:09→23:12)
[2023-12-21] MEDS ORDERED: Ativan IV Alcohol Withdrawal--Active Protocol IV PRN ×2 (17:09→23:12)
[2023-12-21] MEDS ORDERED: LORazepam 2 MG in SYRINGE 1 ML IV PRN (17:09)
--- NOTE | 2023-12-21 17:13 | Emergency Department Note ---
Impression & Plan Acute alcohol intoxication, Alcohol withdrawal ED Provider Note HISTORY OF PRESENT ILLNESS: Patient is a 43-year-old male presenting with alcohol withdrawal. Patient was seen in the emergency department yesterday and wanted to be admitted for alcohol detox. He drinks 1/5 or more of vodka a day. He was previously sober for over 3 years up until about a month and a half ago. He has been since drinking very heavily for the last month and a half. He was admitted to the hospitalist service yesterday, but left AGAINST MEDICAL ADVICE earlier today because he wanted to drink. He reports he went home and drank about half a gallon of vodka today. His last drink was about 30 minutes prior to arrival in the emergency department. Patient reports feeling very tremulous. Denies any visual hallucinations. Denies ever having any seizures when he withdraws. His last tentative sobriety was over 2 months ago. ROS: as above PHYSICAL EXAM: Constitutional: Patient appears in no acute distress. HENT: Head: Normocephalic and atraumatic. Eyes: EOMI, PERRL Mouth/Throat: Mucous membranes moist. Neck: Trachea midline. Neck supple. Cardiovascular: Tachycardic with regular rhythm. No murmurs, rubs or gallops. Intact distal pulses. Pulmonary/Chest: No respiratory distress. Breath sounds clear and equal bilaterally. No wheezes or rales. Abdominal: Abdomen soft, no tenderness, rebound or guarding. Musculoskeletal: No edema, tenderness or deformity noted. Skin: Warm and dry. No rash, erythema, pallor or cyanosis Neurological: Alert but does appear intoxicated. Patient is spontaneously moving all extremities. Having significant asterixis of his bilateral upper and lower extremities MDM: - Vitals signs showed tachycardia. - History obtained via patient. History as above. - Chronic conditions affecting care: alcohol use disorder - Differential diagnoses include, but are not limited to: alcohol intoxication; alcohol withdrawal; electrolyte abnormality; dysrhythmia - Order placed for continuous cardiac monitoring. At this time, monitor showed rate of 110 bpm with normal sinus rhythm, per my interpretation. - External medical records reviewed. Discharge summary dated 12/20/2023 was reviewed. Patient was admitted at that time for suicidal ideation while he was intoxicated and alcohol abuse. Psychiatry was consulted and they recommended gabapentin for 5 days. - EKG interpreted by myself showed normal sinus rhythm. Rate tachycardic at 113 bpm. QT 316. No acute ischemic changes - Laboratory workup interpreted by myself showed normal WBC; stable electrolytes; elevated AST (49); elevated alcohol level (383.5); negative acetaminophen/salicylate levels - UDS positive for THC - Patient's alcohol withdrawal severity score (despite his elevated serum ethanol level) is 13. AWSS protocol initiated. Patient given 3 mg IV ativan - Repeat AWSS improved to 1. - Discussion was had with case folder about patient's case and need for admission - Hospitalist [facility] for [facility] ASSESSMENT AND PLAN: Diagnosis: alcohol intoxication; alcohol withdrawal Plan: admit Past Med/Surg History Problem List (Updated 12/21/23 @ 18:20 by Alexa Arenas MD) Alcohol withdrawal (Acute) Alcohol use disorder Acute alcohol intoxication (Acute) Acute alcohol intoxication (Acute) Alcohol abuse (Acute) Alcohol abuse (Acute) Alcohol intoxication (Acute) Alcohol intoxication (Acute) Alcohol overdose (Acute) Alcohol withdrawal (Acute) Chest tightness (Acute) Homicidal ideation (Acute) Mood disorder (Acute) Nausea & vomiting (Acute) Pancreatitis (Acute) Pancreatitis (Acute) Rib fractures (Acute) Shortness of breath (Acute) Suicidal ideation (Acute) Social History Smoking Status: Current every day smoker Tobacco Type: Cigarettes Cigarettes Per Day: 20; Do You Dip or Chew Tobacco: No; Hx Alcohol Use: Yes Alcohol type: hard liquor Hx Substance Use: No Preferred Language: Kazakh Communication Ability: Effective Shearing Shed Hand Required: No Beliefs That Will Affect Care: None Current Living Situation: Alone Feels Safe at Home: Yes Assistive Devices: None Allergies Allergies Allergy/AdvReac Type Severity Reaction Status Date / Time chlordiazepoxide AdvReac Unknown DELIRIUM Verified 11/26/17 13:10 Home Meds Home Medications Medication Instructions Recorded Confirmed No Known Home Medications 05/27/21 12/20/23 Previous Rx's Medication Instructions Recorded gabapentin 300 mg capsule See Rx Instructions .Route 12/20/23 .COMPLEX 5 days #8 caps Results & Data (ED) Vital Signs Vital Signs - 24 hr 12/21/23 16:29 12/21/23 17:07 12/21/23 17:13 Temperature 36.8 C Temperature Source Temporal Artery Scan Pulse Rate 131 H 109 H Pulse Rate [Apical] Pulse Rhythm Regular Respiratory Rate 24 Respiratory Effort / Characteristics Non-Labored Spontaneous Respiratory Depth Normal Blood Pressure 122/87 Blood Pressure [Right Arm] Blood Pressure Mean 98 Blood Pressure Mean [Right Arm] Pulse Oximetry 97 95 Oxygen Delivery Method Room Air Room Air Sepsis Recent Fever Within 48 Hours No Sepsis New/Unexplained Change in Mental Status No Sepsis Action Taken by Nursing No Action Required 12/21/23 17:15 12/21/23 17:39 12/21/23 18:06 Temperature Temperature Source Pulse Rate Pulse Rate [Apical] 123 H 107 H 109 H Pulse Rhythm Respiratory Rate 26 H 22 17 Respiratory Effort / Characteristics Non-Labored Non-Labored Non-Labored Respiratory Depth Normal Normal Normal Blood Pressure Blood Pressure [Right Arm] 151/95 H 129/89 122/77 Blood Pressure Mean Blood Pressure Mean [Right Arm] 113 102 92 Pulse Oximetry 96 93 93 Oxygen Delivery Method Room Air Room Air Room Air Sepsis Recent Fever Within 48 Hours Sepsis New/Unexplained Change in Mental Status Sepsis Action Taken by Nursing Laboratory Data 12/21/23 16:55 12/21/23 16:55 Lab Results 12/21/23 12/21/23 Range/Units 16:55 16:59 WBC 8.95 (4.8-10.8) K/ul RBC 4.84 (4.70-6.10) M/uL Hgb 15.9 (14.0-18.0) g/dl Hct 45.9 (42.0-52.0) % MCV 94.8 (80.0-100.0) fL MCH 32.9 (25.0-34.0) pg MCHC 34.6 (32.0-36.0) g/dL RDW Std Deviation 48.6 H (36.4-46.3) fL RDW Coeff of Gonzalo 13.8 (11.5-14.5) % Plt Count 287 (130-400) K/uL MPV 8.6 L (9.4-12.4) fL Immature Gran % (Auto) 0.2 % Neut % (Auto) 54.6 % Lymph % (Auto) 37.4 % [place] % (Auto) 4.8 % Eos % (Auto) 2.6 % Baso % (Auto) 0.4 % Neut # (Auto) 4.88 (1.40-6.50) K/uL Lymph # (Auto) 3.35 (1.20-3.40) K/uL [place] # (Auto) 0.43 (0.11-0.59) K/uL Eos # (Auto) 0.23 (0.00-0.50) K/uL Baso # (Auto) 0.04 (0.00-0.20) K/uL Immature Gran # (Auto) 0.02 (0.01-0.20) K/uL Sodium 143 (136-145) mmol/L Potassium 4.3 (3.5-5.1) mmol/L Chloride 105 (98-107) mmol/L Carbon Dioxide 28 (21-32) mmol/L Anion Gap 10 (3-11) BUN 10 (6-23) mg/dl Creatinine 0.82 (0.6-1.4) mg/dl Est Cr Clr Drug Dosing 111.4 ml/min Est GFR ( Amer) 124.6 ml/min Est GFR (Non-Af Amer) 107.5 ml/min BUN/Creatinine Ratio 12.2 (10-20) Glucose 111 H (70-99(Fasting)) mg/dl Calcium 9.1 (8.6-10.3) mg/dl Magnesium 2.0 (1.7-2.4) mg/dl Total Bilirubin 0.4 (0.2-1.0) mg/dl AST 49 H (13-39) U/L ALT 38 (7-52) U/L Alkaline Phosphatase 47 (34-104) U/L Total Protein 7.8 (6.0-8.3) gm/dl Albumin 4.9 (3.4-5.0) gm/dl Globulin 2.9 (2.5-4.0) gm/dl Albumin/Globulin Ratio 1.7 (0.9-2) Salicylates < 3.0 L (3.0-30) mg/dl Urine Opiates Screen Neg (Neg) Ur Methadone, Qual Neg (Neg) Urine Fentanyl Screen Neg (Neg) Acetaminophen < 3 L (10-30) ug/ml Urine Barbiturates Neg (Neg) Ur Phencyclidine (PCP) Neg (Neg) U Amphetamin/Meth Scrn Neg (Neg) MDMA (Ecstasy) Screen Neg (Neg) U Benzodiazepines Scrn Neg (Neg) Ur Cocaine Metabolite Neg (Neg) U Marijuana (THC) Screen Pos H (Neg) Ethyl Alcohol mg/dL 383.5 H (<10.0) mg/dl Administered Medications Multivitamins 10 ml/ Thiamine HCl 100 mg/ Folic Acid 1 mg/Sodium Chloride 1,011.2 mls @ 500 mls/hr IV .Q2H2M ONE Stop: 12/21/23 19:10 Last Admin: 12/21/23 18:03 Dose: 500 mls/hr Documented By: MAGY Thiamine HCl 100 mg/ Syringe 10 mls @ 2 mls/min IV QAM ANGELIC Stop: 01/20/24 17:14 Last Admin: 12/21/23 18:03 Dose: 2 mls/min Documented By: MAGY Discontinued Medications Lorazepam 3 mg/ Syringe 3 mls @ 2 mls/min IV ONCE PRN; Protocol PRN Reason: EtOH Withdrawal AWSS Score 10+ Last Admin: 12/21/23 17:34 Dose: 2 mls/min Documented By: MAGY Discharge Plan Visit Data Chief Complaint: Alcohol Withdrawal Stated Complaint: WITHDRAWAL ED Provider: Alexa Arenas Discharge Problem: Acute alcohol intoxication, Alcohol withdrawal Forms Stand Alone Forms: [facility], Suicide Prevention Resources Prescriptions Prescriptions: No Action No Known Home Medications gabapentin 300 mg capsule See Rx Instructions .ROUTE .COMPLEX 5 Days Qty: 8 0RF Rx Instructions: 300 mg orally ;600 mg at bedtime for 3 days then 300 mg at bedtime for 2 more days then stop Referrals Referrals: PCP,NO [Primary Care Provider] -
[2023-12-21 17:14] LABS: Basophils # (auto) 0.04 K/uL (0.00-0.20); Basophils % (auto) 0.4 %; Eosinophils # (auto) 0.23 K/uL (0.00-0.50); Eosinophils % (auto) 2.6 %; Hematocrit (blood only) 45.9 % (42.0-52.0); Hemoglobin 15.9 g/dl (14.0-18.0); Immature Granulocytes # (auto) 0.02 K/uL (0.01-0.20); Immature Granulocytes % (auto) 0.2 %; Lymphocytes # (auto) 3.35 K/uL (1.20-3.40); Lymphocytes % (auto) 37.4 %; Mean Corpuscular Hemoglobin 32.9 pg (25.0-34.0); Mean Corpuscular Hgb Conc 34.6 g/dL (32.0-36.0); Mean Corpuscular Volume 94.8 fL (80.0-100.0); Mean Platelet Volume 8.6 fL (9.4-12.4); Monocytes # (auto) 0.43 K/uL (0.11-0.59); Monocytes % (auto) 4.8 %; Neutrophils # (auto) 4.88 K/uL (1.40-6.50); Neutrophils % (auto) 54.6 %; Platelet Count 287 K/uL (130-400); RDW Coefficient of Variation 13.8 % (11.5-14.5); RDW Standard Deviation 48.6 fL (36.4-46.3); Red Blood Count 4.84 M/uL (4.70-6.10); White Blood Count 8.95 K/ul (4.8-10.8)
[2023-12-21 17:31] LABS: Albumin Globulin Ratio 1.7 (0.9-2); Albumin Level 4.9 gm/dl (3.4-5.0); BUN Creatinine Ratio 12.2 (10-20); Bilirubin,Total 0.4 mg/dl (0.2-1.0); Calcium 9.1 mg/dl (8.6-10.3); Creatinine Clr Calc Pharmacy 111.4 ml/min; Est GFR (African American) 124.6 ml/min; Est GFR (Non-African American) 107.5 ml/min; Globulin 2.9 gm/dl (2.5-4.0); Potassium 4.3 mmol/L (3.5-5.1); Total Protein 7.8 gm/dl (6.0-8.3)
[2023-12-21 17:32] LABS: Acetaminophen < 3 ug/ml (10-30); Salicylate < 3.0 mg/dl (3.0-30)
[2023-12-21] MEDS: LORazepam 3 MG in SYRINGE 1.5 ML IV PRN (17:34)
[2023-12-21 17:43] LABS: Amphetamines+Metham, Urine Neg (Neg); Barbiturates, Urine Neg (Neg); Benzodiazepine, Urine Neg (Neg); Cocaine, Urine Neg (Neg); Fentanyl, Urine Neg (Neg); MDMA (Ecstacy), Urine Neg (Neg); Marijuana, Urine Pos (Neg); Methadone, Urine Neg (Neg); Opiate, Urine Neg (Neg); Phencyclidine, Urine Neg (Neg)
[2023-12-21] MEDS: THIAMINE HCL 100 MG in SYRINGE 9 ML IV SCH (18:03)
[2023-12-21] MEDS: MULTI-VITAMIN INFUSION 10 ML, THIAMINE HCL 100 MG, FOLIC ACID 1 MG in SODIUM CHLORIDE 0... IV ONE (18:03)
[2023-12-21 19:08] LABS: Appearance Urine Clear (Clear); Bacteria Urine Automated None Seen (None Seen); Bilirubin Urine Negative (Negative); Blood Urine Negative (Negative); Cast Urine Automated 0-2 /lpf (0-2); Color Urine Yellow; Epithelial Cell Urine Auto 0-2 /hpf (0-2); Glucose Urine UA Negative (Negative); Ketones Urine Negative (Negative); Leukocyte Esterase Urine Negative (Negative); Nitrite Urine Negative (Negative); Protein Urine 1+ (Negative); RBC Urine Automated 0-2 /hpf (0-2); Specific Gravity Urine 1.015 (1.000-1.030); Urobilinogen Urine Negative (Negative); WBC Urine Automated 0-5 /hpf (0-5)
--- NOTE | 2023-12-21 20:33 | History & Physical Report ---
Date of Service December 21, 2023 Assessment & Plan (1) Hallucinations: Plan: He has no focal neurology to suggest hemorrhage or stroke and given alternative explanations with positive marijuana and alcohol intoxication will defer brain imaging at this time. CXR to assess for PNA. UA negative for infection. Notably marijuana was negative last admission so suspect this most likely explains his visual hallucinations and altered mental state from his normal alcohol intoxication Less likely alcohol hallucinosis as this occurs with withdrawal and as suspected below he is not in withdrawal at this time. Monitor for improvement off alcohol and marijuana He notably also has a history of cocaine use although UDS negative for this currently (2) Acute alcohol intoxication: Plan: Given his current positive level and recent use he is currently not going through alcohol withdrawal therefore despite scoring highly on AWSS this does not need treatment with lorazepam. If he is to go through withdrawal this will likely be in 12 - 48 hours time but given lack of need for lorazepam use after sobering up yesterday I have a low suspicion he will go through a bad withdrawal. Plan VTE Prophylaxis - deferred Diet - regular Disposition - observation to med/tele Admission and Anticipated Discharge Date Admission Date: December 22, 2023 History of Present Illness Chief Complaint: Hallucinations, ambulatory dysfunction, altered mental state Primary Care Provider: NO PCP Trevor Carlson is a 43 year old male who presents to the ER with altered mental state, hallucinations, ambulatory dysfunction and tremors. He was recently discharged yesterday after alcohol intoxication and making suicidal ideation. He was given 3mg total lorazepam in the emergency room but no further lorazepam was required for withdrawal and on discussion with the ER provider yesterday he was not going through withdrawal on discharge. He went home and drank alcohol immediately as he reported feeling withdrawal symptoms (tremors) although history is not clear due to his altered mental state. He usually drinks 1/5 or more of vodka a day and reports thinking this shortly before coming to the ER today. There was some concern from the ER provider regarding alcohol withdrawal although he had a significantly positive alcohol level on admission, despite this he was given lorazepam 3mg IV. He is currently interested in inpatient hospital detox. On discussion with his over the phone she reports he is acting much more differently than his usual alcohol intoxication, he is having more ambulatory dysfunction than usual and seeing bat's in his hair. Allergies Allergy/AdvReac Type Severity Reaction Status Date / Time chlordiazepoxide AdvReac Unknown DELIRIUM Verified 11/26/17 13:10 Home Medications Medication Instructions Recorded Confirmed Type No Known Home Medications 05/27/21 12/20/23 History gabapentin 300 mg capsule See Rx Instructions .Route 12/20/23 Rx .COMPLEX 5 days #8 caps Past Med/Surg History Problem List (Updated 12/21/23 @ 23:31 by Fabricio Thomas MD) Hallucinations Alcohol withdrawal (Acute) Alcohol use disorder Acute alcohol intoxication (Acute) Acute alcohol intoxication (Acute) Alcohol abuse (Acute) Alcohol abuse (Acute) Alcohol intoxication (Acute) Alcohol intoxication (Acute) Alcohol overdose (Acute) Alcohol withdrawal (Acute) Chest tightness (Acute) Homicidal ideation (Acute) Mood disorder (Acute) Nausea & vomiting (Acute) Pancreatitis (Acute) Pancreatitis (Acute) Rib fractures (Acute) Shortness of breath (Acute) Suicidal ideation (Acute) Social History Smoking Status: Current every day smoker Tobacco Type: Cigarettes Cigarettes Per Day: 20; Do You Dip or Chew Tobacco: No; Hx Alcohol Use: Yes Alcohol type: hard liquor Hx Substance Use: Yes Preferred Language: Cymraes Communication Ability: Effective Electrical Apprentice Required: No Beliefs That Will Affect Care: None Current Living Situation: Spouse Feels Safe at Home: Yes Safety Concerns: Feels Safe At This Time Assistive Devices: None Review of Systems Review of Systems: All systems reviewed & are unremarkable except as noted in HPI & below Physical Exam Constitutional: well developed; + not well nourished and no acute distress (no significant agitation) Eyes: PERRL, conjunctivae normal, anicteric sclerae ENMT: Mouth: + dry oral mucous membranes Respiratory: normal respiratory effort, lungs clear to auscultation Cardiovascular: Rate/Rhythm: regular rhythm and + tachycardic Heart Sounds: no murmur Extremities: normal capillary refill; no calf tenderness and no pedal edema Gastrointestinal (Abdomen): normal bowel sounds, soft, nontender, no hepatosplenomegaly Skin: no rashes, warm and dry Neurologic: moves all extremities, awake and + confused; no focal motor deficits Speech / Cognition: normal speech Motor/Sensory: + tremor (dissipates when outside of the room, resting) Psychiatric: A+Ox3, euthymic affect Results & Data Results & Data Vital Signs (Past 12 Hours) Vital Signs Temp Pulse Pulse Resp BP BP Pulse Ox 12/21/23 19:15 36.8 C 118 H 22 134/114 H 95 12/21/23 18:47 125 H 17 121/81 96 12/21/23 18:06 109 H 17 122/77 93 12/21/23 17:39 107 H 22 129/89 93 12/21/23 17:15 123 H 26 H 151/95 H 96 12/21/23 17:13 109 H 12/21/23 17:07 95 12/21/23 16:29 36.8 C 131 H 24 122/87 97 O2 Del Method 12/21/23 19:15 Room Air 12/21/23 18:47 Room Air 12/21/23 18:06 Room Air 12/21/23 17:39 Room Air 12/21/23 17:15 Room Air 12/21/23 17:13 12/21/23 17:07 Room Air 12/21/23 16:29 Room Air Laboratory Results Abnormal lab results 12/21/23 12/21/23 Range/Units 16:55 16:59 RDW Std Deviation 48.6 H (36.4-46.3) fL MPV 8.6 L (9.4-12.4) fL Glucose 111 H (70-99(Fasting)) mg/dl AST 49 H (13-39) U/L Urine Protein 1+ H (Negative) Salicylates < 3.0 L (3.0-30) mg/dl Acetaminophen < 3 L (10-30) ug/ml U Marijuana (THC) Screen Pos H (Neg) Ethyl Alcohol mg/dL 383.5 H (<10.0) mg/dl Medications Administered ER Medications Given: Lorazepam 3ml IV ECG Rate (beats per minute): 113 Rhythm: sinus tachycardia Findings: no acute ischemic change Comparison ECG Date: from (November 26, 2017) Change: no significant change Code Status & VTE Plan Code Status Full VTE Prophylaxis Plan VTE Prophylaxis will be ordered: Yes PG Care Time/CCT Total # of Minutes Spent Total Time Spent with Patient: Total time spent is greater than 50% in coordination of care (as documented) at patient's floor/unit and/or counseling patient: Coding Level of Care Code 47892 INT INP/OBS CARE 2/55MIN Diagnoses Hallucinations R44.3 Acute alcohol intoxication F10.929
[2023-12-21] MEDS: NICOTINE 21 MG/24 HR TDSY TD ONE (21:15)
[2023-12-21] MEDS: ONDANSETRON INJ 2 MG/ML 2 ML VIAL IV STA (21:50)
[2023-12-22] MEDS: LORazepam 2 MG in SYRINGE 1 ML IV PRN (00:19)
[2023-12-22] MEDS: LORazepam 3 MG in SYRINGE 1.5 ML IV PRN (01:46)
[2023-12-22] MEDS: ONDANSETRON INJ 2 MG/ML 2 ML VIAL IV PRN (05:11)
--- NOTE | 2023-12-22 07:31 | XRay Report ---
XR chest 1V portable HISTORY: 43 years-old Male Altered mental state acutely altered mental status COMPARISON: 11/26/2017 TECHNIQUE: AP view of the chest FINDINGS: Cardiomediastinal and hilar silhouettes are within normal limits. No pneumothorax, pleural effusion, airspace consolidation or pulmonary edema. Bones of the chest appear grossly intact. There is mild up per thoracic levoscoliosis. IMPRESSION: No acute process. ACT 112: Negative or not required by law. The above report was generated using voice recognition software. It may contain grammatical, syntax o r spelling errors. Electronically signed by: Ciro Goff M.D. 12/22/2023 7:30 AM
--- NOTE | 2023-12-22 10:36 | Discharge Summary ---
Date of Service December 22, 2023 Admission HPI Per Admitting Provider Trevor Carlson is a 43 year old male who presents to the ER with altered mental state, hallucinations, ambulatory dysfunction and tremors. He was recently discharged yesterday after alcohol intoxication and making suicidal ideation. He was given 3mg total lorazepam in the emergency room but no further lorazepam was required for withdrawal and on discussion with the ER provider yesterday he was not going through withdrawal on discharge. He went home and drank alcohol immediately as he reported feeling withdrawal symptoms (tremors) although history is not clear due to his altered mental state. He usually drinks 1/5 or more of vodka a day and reports thinking this shortly before coming to the ER today. There was some concern from the ER provider regarding alcohol withdrawal although he had a significantly positive alcohol level on admission, despite this he was given lorazepam 3mg IV. He is currently interested in inpatient hospital detox. On discussion with his over the phone she reports he is acting much more differently than his usual alcohol intoxication, he is having more ambulatory dysfunction than usual and seeing bat's in his hair. Principal Diagnosis Alcohol intoxication Discharge Exam General-alert and oriented x3, no fever, no chills HEENT-head atraumatic and normocephalic, pupils equal and reactive to light, extraocular muscles intact Neck-no lymphadenopathy or thyromegaly, trachea midline Chest-clear to auscultation. No rales, wheezing or rhonchi Cardiac-regular rate and rhythm, normal S1 and S2 Abdomen-normal bowel sounds, no hepatosplenomegaly Extremities-no cyanosis, clubbing, or edema Neuro-cranial nerves II through XII intact, motor and sensory function within normal limits, strength symmetrical, no focal deficits Psych-normal affect, normal mood Discharge Data Allergies Allergy/AdvReac Type Severity Reaction Status Date / Time chlordiazepoxide AdvReac Unknown DELIRIUM Verified 12/22/23 09:55 Consultations 12/21/23 18:11 ED Decision to Admit Stat Hospital Course (1) Hallucinations: Due to alcohol intoxication on admission. Now resolved. He was seen by psychiatry just the other day and they recommended short course of gabapentin. I spoke to his , Lamar, by phone and she states that he has the medication and she will try to make sure that he takes it. (2) Acute alcohol intoxication: Present on admission. Now resolved. He states he does not want to stay in the hospital and wants to go home. He is not a 302 case and I have no reason to keep him here. I spoke to his by phone and she understands the situation. Gabapentin was recommended by psychiatry the other day and he does have the prescription. Plan Home today, December 21. Take gabapentin as recommended by psychiatry. Seek outpatient alcohol treatment program Total Time Total Time Spent Total Time Spent (In Minutes): 45 minutes Discharge Plan Discharge Items Reason For Visit: ALCOHOL INTOX, HIGH RISK ALCOHOL WITHDRAWAL, HALLU Follow-up/Referrals: PCP,NO [Primary Care Provider] - Medications and DC Order Prescriptions: No Action No Known Home Medications Admission Data Admit Date/Time: 12/21/23 19:56 Attending Provider: Gatito Garcia Admit Provider: Fabricio Thomas Primary Care Provider: PCP,NO Other Providers: Fabricio Thomas Coding Level of Care Code 06260 INP/OBS DISCH >30 MIN Diagnoses Hallucinations R44.3 Acute alcohol intoxication F10.929
--- NOTE | 2023-12-22 10:46 | Discharge Summary ---
Date of Service December 22, 2023 Admission HPI Per Admitting Provider Trevor Carlson is a 43 year old male who presents to the ER with altered mental state, hallucinations, ambulatory dysfunction and tremors. He was recently discharged yesterday after alcohol intoxication and making suicidal ideation. He was given 3mg total lorazepam in the emergency room but no further lorazepam was required for withdrawal and on discussion with the ER provider yesterday he was not going through withdrawal on discharge. He went home and drank alcohol immediately as he reported feeling withdrawal symptoms (tremors) although history is not clear due to his altered mental state. He usually drinks 1/5 or more of vodka a day and reports thinking this shortly before coming to the ER today. There was some concern from the ER provider regarding alcohol withdrawal although he had a significantly positive alcohol level on admission, despite this he was given lorazepam 3mg IV. He is currently interested in inpatient hospital detox. On discussion with his over the phone she reports he is acting much more differently than his usual alcohol intoxication, he is having more ambulatory dysfunction than usual and seeing bat's in his hair. Principal Diagnosis Acute alcohol intoxication, visual hallucinations Discharge Exam General-alert and oriented x3, no fever, no chills HEENT-head atraumatic and normocephalic, pupils equal and reactive to light, extraocular muscles intact Neck-no lymphadenopathy or thyromegaly, trachea midline Chest-clear to auscultation. No rales, wheezing or rhonchi Cardiac-regular rate and rhythm, normal S1 and S2 Abdomen-normal bowel sounds, no hepatosplenomegaly Extremities-no cyanosis, clubbing, or edema Neuro-cranial nerves II through XII intact, motor and sensory function within normal limits, strength symmetrical, no focal deficits Psych-normal affect, normal mood Discharge Data Allergies Allergy/AdvReac Type Severity Reaction Status Date / Time chlordiazepoxide AdvReac Unknown DELIRIUM Verified 12/22/23 09:55 Consultations 12/21/23 18:11 ED Decision to Admit Stat Hospital Course (1) Hallucinations: Due to alcohol intoxication on admission. Now resolved. He was seen by psychiatry just the other day and they recommended short course of gabapentin. I spoke to his , Lamar, by phone and she states that he has the medication and she will try to make sure that he takes it. (2) Acute alcohol intoxication: Present on admission. Now resolved. He states he does not want to stay in the hospital and wants to go home. He is not a 302 case and I have no reason to keep him here. I spoke to his by phone and she understands the situation. Gabapentin was recommended by psychiatry the other day and he does have the prescription. Plan Home today, December 21. Take gabapentin as recommended by psychiatry. Seek outpatient alcohol treatment program Total Time Total Time Spent Total Time Spent (In Minutes): 45 minutes Discharge Plan Discharge Items Patient Disposition: Home - Self-Care Reason For Visit: ALCOHOL INTOX, HIGH RISK ALCOHOL WITHDRAWAL, HALLU Discharge Diagnosis: Acute alcohol intoxication, visual hallucinations Activity: Resume your previous activity Non-emergency contact: Primary Care Provider Call non-emergency contact if: you have any medication questions Follow-up/Referrals: PCP,NO [Primary Care Provider] - Diet: Regular Addtl Attending Provider Instructions: Take gabapentin prescribed at last hospitalization. Seek outpatient alcohol rehabilitation Pending Studies at Discharge: No Stand-Alone Forms: [facility] Conferensum, Smoking Cessation Medications and DC Order Prescriptions: No Action No Known Home Medications Discharge Orders: Discharge Order (Routine); Ordered 12/22/23 Ordered By: Gatito Garcia Admission Data Admit Date/Time: 12/21/23 19:56 Attending Provider: Gatito Garcia Admit Provider: Fabricio Thomas Primary Care Provider: PCP,NO Other Providers: Fabricio Thomas Coding Level of Care Code 52104 INP/OBS DISCH >30 MIN Diagnoses Hallucinations R44.3 Acute alcohol intoxication F10.929
--- NOTE | 2023-12-22 13:07 | Electrocardiogram Report ---
Test Reason : Blood Pressure : / mmHG Vent. Rate : 113 BPM Atrial Rate : 113 BPM P-R Int : 122 ms QRS Dur : 092 ms QT Int : 316 ms P-R-T Axes : 067 032 065 degrees QTc Int : 433 ms Sinus tachycardia Otherwise normal ECG When compared with ECG of 26-NOV-2017 12:40, No significant change was found Confirmed by Javi Scott ([id number]) on 12/22/2023 1:07:29 PM Referred By: REFERRED SELF Confirmed By:Gurmeet Scott
[2023-12-24 11:17] LABS: Marijuana Quant, GCMS Urine 84 ng/mL (<5)
== END 2023-12-22 11:12 | disposition home or self-care (01) ==
LOC: EDINP 16:10 → ED 16:10 → SUATTDRO 19:56 → EDINP 22:11

== ENCOUNTER 2024-02-14 14:47 | Inpatient (IN) ==
[2024-02-14] MEDS: SODIUM CHLORIDE 0.9% 1,000 ML IV ONE (15:09)
[2024-02-14] MEDS: LORazepam 1 MG/1 ML SYR ED Inj Use IV STA ×2 (15:12→16:55)
[2024-02-14 15:30] LABS: Basophils # (auto) 0.07 K/uL (0.00-0.20); Eosinophils # (auto) 0.09 K/uL (0.00-0.50); Eosinophils % (auto) 1.3 %; Hematocrit (blood only) 46.6 % (42.0-52.0); Hemoglobin 16.4 g/dl (14.0-18.0); Immature Granulocytes # (auto) 0.02 K/uL (0.01-0.20); Immature Granulocytes % (auto) 0.3 %; Lymphocytes # (auto) 2.61 K/uL (1.20-3.40); Lymphocytes % (auto) 37.8 %; Mean Corpuscular Hemoglobin 33.3 pg (25.0-34.0); Mean Corpuscular Hgb Conc 35.2 g/dL (32.0-36.0); Mean Corpuscular Volume 94.5 fL (80.0-100.0); Mean Platelet Volume 8.4 fL (9.4-12.4); Monocytes % (auto) 5.8 %; Neutrophils # (auto) 3.71 K/uL (1.40-6.50); Neutrophils % (auto) 53.8 %; Platelet Count 280 K/uL (130-400); RDW Coefficient of Variation 13.6 % (11.5-14.5); RDW Standard Deviation 47.8 fL (36.4-46.3); Red Blood Count 4.93 M/uL (4.70-6.10)
[2024-02-14 15:50] LABS: Albumin Globulin Ratio 1.8 (0.9-2); Albumin Level 5.1 gm/dl (3.4-5.0); BUN Creatinine Ratio 13.3 (10-20); Bilirubin,Total 0.4 mg/dl (0.2-1.0); Calcium 9.4 mg/dl (8.6-10.3); Creatinine Clr Calc Pharmacy 106.2 ml/min; Globulin 2.9 gm/dl (2.5-4.0); Magnesium 2.1 mg/dl (1.7-2.4); Potassium 4.4 mmol/L (3.5-5.1)
[2024-02-14 16:03] LABS: Thyroid Stimulating Hormone 1.186 uIu/ml (0.300-4.500)
[2024-02-14 16:12] LABS: Acetaminophen < 3 ug/ml (10-30); Salicylate < 3.0 mg/dl (3.0-30)
--- NOTE | 2024-02-14 16:16 | CT Scan Report ---
CT head/brain wo con CLINICAL HISTORY: seizure head injury Technique: Contiguous axial CT images of the head were acquired from the base of the skull to the nicolette maliha without intravenous contrast administration. Images were viewed in brain, subdural and bone [facility]. Automated dose lowering techniques and/or adjustment according to patient size were utilized for this exam. Comparison: Comparison is made to CT head 11/26/2017 Findings: Areas of decreased attenuation are present in the periventricular and subcortical white matter bilate rally consistent with small vessel ischemic disease. Generalized cerebral atrophy with commensurate e nlargement of the ventricles, sulci, and cisterns is also present. There is no acute intracranial hem orrhage or evidence of acute territorial infarction. No shift of the midline structures, mass effect, or extra-axial abnormalities are shown. Atherosclerotic calcifications are present in the intracran ial segments of the internal carotid arteries. Imaged portions of the paranasal sinuses and mastoid air cells are clear. The orbits appear normal. There are no acute fractures of the calvaria or scalp swelling. Impression: No acute intracranial hemorrhage, no evidence of acute territorial infarction or other acute intracra nial disease process. ACT 112: Negative or not required by law. Electronically signed by: Modesto Archer M.D. 02/14/2024 4:14 PM
--- NOTE | 2024-02-14 16:20 | CT Scan Report ---
CT SCAN OF THE CERVICAL SPINE CLINICAL HISTORY: Seizure. Head injury. COMPARISON STUDY: No priors. TECHNIQUE: CT scan of the cervical spine is performed from the skull base to the upper thoracic spine . Images are reviewed in the axial, sagittal, and coronal planes. IV contrast was not administered fo r this examination. A dose lowering technique was utilized adhering to the principles of ALARA. CT DOSE: 1108.24 mGy.cm FINDINGS: Skeletal structures: The skeletal structures are well mineralized. There is no evidence of fracture o r subluxation involving the cervical spine. Vertebral body height and alignment are maintained. Tiny anterior osteophytes are seen throughout. The odontoid process and lateral masses are intact. The at lantoaxial articulation is preserved noting mild productive degenerative change. The spinous processe s appear intact. There is mild multilevel facet arthropathy. Intervertebral discs: There is moderate disc space narrowing at C5-C6 and C6-C7. Endplate sclerosis i s noted at C5-C6. Central canal: Posterior disc osteophyte complexes at C5-C6 and C6-C7 may contribute to acquired comp romise of the central canal. Soft tissues: The prevertebral and paraspinous soft tissues are within normal limits. Calvarium: The visualized calvarium at the skull base appears intact. Brain parenchyma: Partially visualized brain parenchyma at the skull base is within normal limits. Sinuses and mastoids: There is moderate mucosal thickening within the ethmoid sinuses. Mild mucosal t hickening is seen within the maxillary and sphenoid sinuses. The mastoid air cells are well pneumatiz ed. Lung apices: Clear as visualized. IMPRESSION: There is no evidence of cervical spine fracture or subluxation. ACT 112: Negative or not required by law. Electronically signed by: Varun Pablo M.D. 02/14/2024 4:18 PM
[2024-02-14] MEDS ORDERED: LORazepam 1 MG TAB PO PRN (17:22)
[2024-02-14] MEDS ORDERED: Ativan PO Alcohol Withdrawal--Active Protocol PO PRN (17:22)
--- NOTE | 2024-02-14 17:38 | History & Physical Report ---
Date of Service February 14, 2024 Assessment & Plan (1) Alcohol withdrawal: Plan: Assessment: 1. Acute alcohol intoxication. IV fluids. Alcohol withdrawal protocol. 2. Early alcohol withdrawal. Per the ER physician the patient was tremulous in the ER required multiple doses of Ativan. Alcohol withdrawal protocol has been ordered. 3. Suicidal ideation having a gun today was making him suicidal threats. He is on suicide precautions. With a one-on-one attendant. Psychiatry will be consulted. 4. High anion gap metabolic acidosis secondary to alcohol intoxication. Hydrate and monitor. 5. Nausea. Probably secondary to alcohol gastritis. Clear liquids for now. IV Protonix. 6. Polysubstance abuse. The patient admits to using recreational marijuana, recreational cocaine, recreational ecstasy,. Urine drug screen is pending. Given the fact that he patient does admit to cocaine use we will check an echocardiogram. 7. Tobacco abuse in the form of smoking cigarettes. Nicotine patch would be offered to the patient if requested. Plan: As discussed above. Please refer to orders for further planning. History of Present Illness Chief Complaint: Alcoholism, suicidal, and intoxication with alcohol. Primary Care Provider: NO PCP 43-year-old male who has a history of alcoholism and substance abuse. Today apparently had a gun and was threatening to harm himself. He was brought in by the police department for further evaluation and treatment medically. In the ER laboratory studies revealed an unremarkable CBC CMP which was fairly unremarkable as well with exception of mildly elevated anion gap at 16 probably secondary to acute alcohol intoxication with a blood alcohol level of 289.6. Urine drug screen is pending. Salicylates were negative. Acetaminophen was negative. AST mildly elevated at 43 otherwise liver function studies were unremarkable. COVID testing was negative. Patient's course in the ER received multiple doses of Ativan. We are called admit the patient for further evaluation and treatment for alcohol intoxication and suicidal ideation as well as risk for alcohol withdrawal. Allergies Allergy/AdvReac Type Severity Reaction Status Date / Time chlordiazepoxide AdvReac Unknown DELIRIUM Verified 12/22/23 09:55 Home Medications Medication Instructions Recorded Confirmed Type No Known Home Medications 12/22/23 02/14/24 History Past Med/Surg History Problem List (Updated 01/20/24 @ 00:08 by Background Daemon) Hallucinations Alcohol withdrawal (Acute) Alcohol use disorder Acute alcohol intoxication (Acute) Alcohol abuse (Acute) Alcohol intoxication (Acute) Alcohol intoxication (Acute) Alcohol overdose (Acute) Alcohol withdrawal (Acute) Chest tightness (Acute) Homicidal ideation (Acute) Nausea & vomiting (Acute) Pancreatitis (Acute) Pancreatitis (Acute) Rib fractures (Acute) Shortness of breath (Acute) Suicidal ideation (Acute) Medical History (Updated 01/20/24 @ 00:08 by Mango Welsh) Mood disorder Alcohol abuse Social History Smoking Status: Current every day smoker Tobacco Type: Cigarettes Cigarettes Per Day: 20; Do You Dip or Chew Tobacco: No; Hx Alcohol Use: Yes Alcohol type: hard liquor Hx Substance Use: Yes Preferred Language: Tuvaluan Communication Ability: Effective Foundry Molder Required: No Beliefs That Will Affect Care: None Current Living Situation: Spouse Feels Safe at Home: Yes Assistive Devices: None Review of Systems Review of Systems: A 10 point review of system was obtained and unless otherwise stated here or in history of present illness are negative and noncontributory to chief complaint. Physical Exam Physical Exam: In General: In general pleasant 43-year-old male he is alert and oriented to person and place a somewhat confused to time. He was asking what time a day it was for example. He denies pain. He mitts to being somewhat nauseated. He denies abdominal pain. HEENT: Normocephalic atraumatic pupils are equal round and reactive to light bilaterally. No scleral icterus no conjunctival injection external auditory canals are patent septum is in the midline nose is without discharge oral mucosa is pink and dry without lesion. NECK: Supple no rigidity no lymphadenopathy no thyromegaly no carotid bruits no JVD no masses. HEART: Regular rate and rhythm I do not appreciate any ectopy or rub. No murmur. Tattoo noted in superior left pectoral region LUNGS: Clear to auscultation bilaterally and anteriorly with no evidence of adventitious sounds/wheezes rales or rhonchi. ABDOMEN: Soft nontender, no rebound, no peritoneal signs, positive bowel sounds, no appreciable organomegaly. EXTREMITIES: Intact, no peripheral cyanosis, clubbing or edema. Strength is 5 out of 5 in extremities x4, no pathological reflexes. NEUROLOGICAL: Cranial nerves II through XII are grossly intact with no focal deficit elicited upon examination. Results & Data Results & Data Vital Signs (Past 12 Hours) Vital Signs Temp Pulse Pulse Resp BP Pulse Ox O2 Del Method 02/14/24 16:16 95 H 20 93 Room Air 02/14/24 15:32 109 H 02/14/24 14:53 36.3 C L 138 H 24 151/96 H 95 Room Air Code Status & VTE Plan Code Status Full code I personally discussed with patient VTE Prophylaxis Plan VTE Prophylaxis will be ordered: Yes PG Care Time/CCT Total # of Minutes Spent Total Time Spent with Patient: Total time spent is greater than 50% in coordination of care (as documented) at patient's floor/unit and/or counseling patient: Coding Level of Care Code 85027 INT INP/OBS CARE 3/75MIN Diagnoses Alcohol withdrawal F10.939
[2024-02-14 18:28] LABS: Appearance Urine Clear (Clear); Bacteria Urine Automated None Seen (None Seen); Bilirubin Urine Negative (Negative); Blood Urine Negative (Negative); Cast Urine Automated 0-2 /lpf (0-2); Color Urine Yellow; Epithelial Cell Urine Auto 0-2 /hpf (0-2); Glucose Urine UA Negative (Negative); Ketones Urine 1+ (Negative); Leukocyte Esterase Urine Negative (Negative); Nitrite Urine Negative (Negative); Protein Urine 1+ (Negative); RBC Urine Automated 0-2 /hpf (0-2); Specific Gravity Urine 1.022 (1.000-1.030); Urobilinogen Urine Negative (Negative); WBC Urine Automated 0-5 /hpf (0-5)
[2024-02-14] MEDS: LACTATED RINGER'S 1,000 ML IV SCH (18:40)
[2024-02-14] MEDS: PANTOprazole 40 MG in SYRINGE 0 ML IV SCH (18:40)
[2024-02-14] MEDS: THIAMINE HCL 100 MG/ML 2 ML VIAL IM STA (18:44)
--- NOTE | 2024-02-14 19:00 | Emergency Department Note ---
History of Present Illness General Chief complaint: Detox Request Stated complaint: 201, [facility] Time Seen by Provider: 02/14/24 14:55 History of Present Illness Provider complaint: Alcohol withdrawal suicidal ideation 43-year-old male presents to the emergency department for alcohol withdrawal and suicidal ideation. Patient reports he drinks alcohol frequently and drink a gallon of vodka today. He states he wanted to kill himself and put a gun to his head. Patient states he thinks he is going through withdrawals. He states he is not sure if he fell or had a seizure. Home Medications Medication Instructions Recorded Confirmed Type No Known Home Medications 12/22/23 02/14/24 History Allergies Allergy/AdvReac Type Severity Reaction Status Date / Time chlordiazepoxide AdvReac Unknown DELIRIUM Verified 12/22/23 09:55 Past Med/Surg History Problem List (Updated 02/14/24 @ 19:00 by Koby Pace MD) Hallucinations Alcohol withdrawal (Acute) Alcohol use disorder Acute alcohol intoxication (Acute) Alcohol abuse (Acute) Alcohol intoxication (Acute) Alcohol intoxication (Acute) Alcohol overdose (Acute) Alcohol withdrawal (Acute) Chest tightness (Acute) Homicidal ideation (Acute) Nausea & vomiting (Acute) Pancreatitis (Acute) Pancreatitis (Acute) Rib fractures (Acute) Shortness of breath (Acute) Suicidal ideation (Acute) Medical History Mood disorder Alcohol abuse Social History Smoking Status: Current every day smoker Tobacco Type: Cigarettes Cigarettes Per Day: 20; Do You Dip or Chew Tobacco: No; Hx Alcohol Use: Yes Alcohol type: hard liquor Hx Substance Use: Yes Preferred Language: Samoan Communication Ability: Effective Separations Scientist Required: No Beliefs That Will Affect Care: None Current Living Situation: Spouse Feels Safe at Home: Yes Assistive Devices: None Physical Exam Vital Signs Vital Signs - 24 hr 02/14/24 14:53 02/14/24 15:32 02/14/24 16:16 Temperature 36.3 C L Temperature Source Temporal Artery Scan Pulse Rate 138 H 109 H Pulse Rate [Apical] 95 H Pulse Rhythm Pulse Rhythm [Apical] Regular Pulse Strength [Apical] Normal Respiratory Rate 24 20 Respiratory Effort / Characteristics Non-Labored Spontaneous Non-Labored Spontaneous Respiratory Depth Normal Normal Respiratory Pattern Regular Regular Blood Pressure 151/96 H Blood Pressure [Right Arm] Blood Pressure Mean 114 Blood Pressure Mean [Right Arm] Blood Pressure Position [Right Arm] Pulse Oximetry 95 93 Oxygen Delivery Method Room Air Room Air Sepsis Recent Fever Within 48 Hours No Sepsis New/Unexplained Change in Mental Status N/A Sepsis Action Taken by Nursing No Action Required 02/14/24 18:00 02/14/24 18:30 02/14/24 18:37 Temperature Temperature Source Pulse Rate 96 H Pulse Rate [Apical] 93 H Pulse Rhythm Regular Pulse Rhythm [Apical] Regular Pulse Strength [Apical] Normal Respiratory Rate 19 18 Respiratory Effort / Characteristics Non-Labored Spontaneous Respiratory Depth Normal Respiratory Pattern Regular Blood Pressure Blood Pressure [Right Arm] 146/79 H 108/67 Blood Pressure Mean Blood Pressure Mean [Right Arm] 101 80 Blood Pressure Position [Right Arm] Lying Pulse Oximetry 97 94 Oxygen Delivery Method Room Air Room Air Sepsis Recent Fever Within 48 Hours Sepsis New/Unexplained Change in Mental Status Sepsis Action Taken by Nursing Physical Exam GENERAL: Patient is tremulous and appears to be going through withdrawals. HENT: Exam performed. - Head: Normocephalic and atraumatic. NECK: Normal range of motion. Neck supple. No JVD present. No spinous process tenderness present. CV: Tachycardic rate, regular rhythm, normal heart sounds and intact distal pulses. There is no peripheral edema. Palpable radial pulses bue. PULM/CHEST: Effort normal and breath sounds normal. No respiratory distress. No stridor. He has no wheezes. He has no rales. ABD: The abdomen is soft. NEURO: Motor and sensation grossly intact. SKIN: Diaphoretic. PSYCH: Bizarre affect. Suicidal ideation. Course Course 145: The patient was evaluated in room C6. A complete history and physical exam was performed Cardiac monitoring: An order was placed for continuous cardiac monitoring. The monitor shows a rate of 110 with sinus rhythm interpreted by me Ativan added for alcohol withdrawal. 1649: patient becoming increasingly tremulous again. Patient ordered additional Ativan. CT shows no acute traumatic injury. Labs are unremarkable with exception of a alcohol of 286.9. Patient will be admitted to the hospitalist team for alcohol withdrawal and suicidal ideation. Administered Medications Lactated Ringer's (Lr) 1,000 mls @ 100 mls/hr IV .Q10H ANGELIC Stop: 03/15/24 17:29 Last Admin: 02/14/24 18:40 Dose: 100 mls/hr Documented By: ANGEL Pantoprazole Sodium 40 mg/ (Syringe) 10 mls @ 5 mls/min IV DAILY@1100 ANGELIC Stop: 03/15/24 17:39 Last Admin: 02/14/24 18:40 Dose: 5 mls/min Documented By: ANGEL Discontinued Medications Sodium Chloride (Nss) 1,000 mls @ 999 mls/hr IV .Q1H1M ONE Stop: 02/14/24 16:05 Last Infusion: 02/14/24 16:37 Dose: Infused Documented By: Admin: 02/14/24 15:09 Dose: 999 mls/hr Documented By: TOBIAS Lorazepam (Lorazepam 1 Mg/1 Ml Syr Ed Inj Use) 2 mg IV ONE STA Stop: 02/14/24 15:05 Last Admin: 02/14/24 15:12 Dose: 2 mg Documented By: TOBIAS Lorazepam (Lorazepam 1 Mg/1 Ml Syr Ed Inj Use) 1 mg IV ONE STA Stop: 02/14/24 16:38 Last Admin: 02/14/24 16:55 Dose: 1 mg Documented By: MEL Thiamine HCl (Thiamine Hcl 100 Mg/Ml 2 Ml Vial) 100 mg IM NOW STA Stop: 02/14/24 17:23 Last Admin: 02/14/24 18:44 Dose: 100 mg Documented By: MEL Medical Decision Making Laboratory Data Attestation: I reviewed the patient's lab results. 02/14/24 15:05 02/14/24 15:05 Lab Results 02/14/24 02/14/24 02/14/24 Range/Units 15:05 15:24 18:04 WBC 6.90 (4.8-10.8) K/ul RBC 4.93 (4.70-6.10) M/uL Hgb 16.4 (14.0-18.0) g/dl Hct 46.6 (42.0-52.0) % MCV 94.5 (80.0-100.0) fL MCH 33.3 (25.0-34.0) pg MCHC 35.2 (32.0-36.0) g/dL RDW Std Deviation 47.8 H (36.4-46.3) fL RDW Coeff of Gonzalo 13.6 (11.5-14.5) % Plt Count 280 (130-400) K/uL MPV 8.4 L (9.4-12.4) fL Immature Gran % (Auto) 0.3 % Neut % (Auto) 53.8 % Lymph % (Auto) 37.8 % [place] % (Auto) 5.8 % Eos % (Auto) 1.3 % Baso % (Auto) 1.0 % Neut # (Auto) 3.71 (1.40-6.50) K/uL Lymph # (Auto) 2.61 (1.20-3.40) K/uL [place] # (Auto) 0.40 (0.11-0.59) K/uL Eos # (Auto) 0.09 (0.00-0.50) K/uL Baso # (Auto) 0.07 (0.00-0.20) K/uL Immature Gran # (Auto) 0.02 (0.01-0.20) K/uL Sodium 143 (136-145) mmol/L Potassium 4.4 (3.5-5.1) mmol/L Chloride 101 (98-107) mmol/L Carbon Dioxide 26 (21-32) mmol/L Anion Gap 16 H (3-11) BUN 11 (6-23) mg/dl Creatinine 0.83 (0.6-1.4) mg/dl Est Cr Clr Drug Dosing 106.2 ml/min Est GFR ( Amer) 124.0 ml/min Est GFR (Non-Af Amer) 107.0 ml/min BUN/Creatinine Ratio 13.3 (10-20) Glucose 103 H (70-99(Fasting)) mg/dl Calcium 9.4 (8.6-10.3) mg/dl Magnesium 2.1 (1.7-2.4) mg/dl Total Bilirubin 0.4 (0.2-1.0) mg/dl AST 43 H (13-39) U/L ALT 35 (7-52) U/L Alkaline Phosphatase 48 (34-104) U/L Total Protein 8.0 (6.0-8.3) gm/dl Albumin 5.1 H (3.4-5.0) gm/dl Globulin 2.9 (2.5-4.0) gm/dl Albumin/Globulin Ratio 1.8 (0.9-2) Lipase 101 H (11-82) U/L TSH 1.186 (0.300-4.500) uIu/ml Urine Color Yellow Urine Appearance Clear (Clear) Urine pH 6.0 (4.5-7.5) Ur Specific [place] 1.022 (1.000-1.030) Urine Protein 1+ H (Negative) Urine Glucose (UA) Negative (Negative) Urine Ketones 1+ H (Negative) Urine Blood Negative (Negative) Urine Nitrite Negative (Negative) Urine Bilirubin Negative (Negative) Urine Urobilinogen Negative (Negative) Ur Leukocyte Esterase Negative (Negative) Urine WBC (Auto) 0-5 (0-5) /hpf Urine RBC (Auto) 0-2 (0-2) /hpf U Hyaline Cast (Auto) 0-2 (0-2) /lpf U Epithel Cells (Auto) 0-2 (0-2) /hpf Urine Bacteria (Auto) None Seen (None Seen) Salicylates < 3.0 L (3.0-30) mg/dl Acetaminophen < 3 L (10-30) ug/ml Ethyl Alcohol mg/dL 289.6 H (<10.0) mg/dl SARS-CoV-2, RNA, NAAT NEGATIVE (NEGATIVE) Imaging Data Radiologist's Impression: Head CT 02/14/24 15:04 CT head/brain wo con CLINICAL HISTORY: seizure head injury Technique: Contiguous axial CT images of the head were acquired from the base of the skull to the vertex without intravenous contrast administration. Images were viewed in brain, subdural and bone windows. Automated dose lowering techniques and/or adjustment according to patient size were utilized for this exam. Comparison: Comparison is made to CT head 11/26/2017 Findings: Areas of decreased attenuation are present in the periventricular and subcortical white matter bilaterally consistent with small vessel ischemic disease. Generalized cerebral atrophy with commensurate enlargement of the ventricles, sulci, and cisterns is also present. There is no acute intracranial hemorrhage or evidence of acute territorial infarction. No shift of the midline structures, mass effect, or extra-axial abnormalities are shown. Atherosclerotic calcifications are present in the intracranial segments of the internal carotid arteries. Imaged portions of the paranasal sinuses and mastoid air cells are clear. The orbits appear normal. There are no acute fractures of the calvaria or scalp swelling. Impression: No acute intracranial hemorrhage, no evidence of acute territorial infarction or other acute intracranial disease process. ACT 112: Negative or not required by law. Electronically signed by: Modesto Archer M.D. 02/14/2024 4:[address] 02/14/24 15:05 CT SCAN OF THE CERVICAL SPINE CLINICAL HISTORY: Seizure. Head injury. COMPARISON STUDY: No priors. TECHNIQUE: CT scan of the cervical spine is performed from the skull base to the upper thoracic spine. Images are reviewed in the axial, sagittal, and coronal planes. IV contrast was not administered for this examination. A dose lowering technique was utilized adhering to the principles of ALARA. CT DOSE: 1108.24 mGy.cm FINDINGS: Skeletal structures: The skeletal structures are well mineralized. There is no evidence of fracture or subluxation involving the cervical spine. Vertebral body height and alignment are maintained. Tiny anterior osteophytes are seen throughout. The odontoid process and lateral masses are intact. The atlantoaxial articulation is preserved noting mild productive degenerative change. The spinous processes appear intact. There is mild multilevel facet arthropathy. Intervertebral discs: There is moderate disc space narrowing at C5-C6 and C6-C7. Endplate sclerosis is noted at C5-C6. Central canal: Posterior disc osteophyte complexes at C5-C6 and C6-C7 may contribute to acquired compromise of the central canal. Soft tissues: The prevertebral and paraspinous soft tissues are within normal limits. Calvarium: The visualized calvarium at the skull base appears intact. Brain parenchyma: Partially visualized brain parenchyma at the skull base is within normal limits. Sinuses and mastoids: There is moderate mucosal thickening within the ethmoid sinuses. Mild mucosal thickening is seen within the maxillary and sphenoid sinuses. The mastoid air cells are well pneumatized. Lung apices: Clear as visualized. IMPRESSION: There is no evidence of cervical spine fracture or subluxation. ACT 112: Negative or not required by law. Electronically signed by: Varun Pablo M.D. 02/14/2024 4:18 PM [facility] Narrative 1455: The patient was evaluated in room C6. A complete history and physical exam was performed Cardiac monitoring: An order was placed for continuous cardiac monitoring. The monitor shows a rate of 110 with sinus rhythm interpreted by va Ativan added for alcohol withdrawal. 1650: patient becoming increasingly tremulous again. Patient ordered additional Ativan. CT shows no acute traumatic injury. Labs are unremarkable with exception of a alcohol of 286.9. Patient will be admitted to the hospitalist team for alcohol withdrawal and suicidal ideation. Impression & Plan Alcohol withdrawal Discharge Plan Visit Data Chief Complaint: Detox Request Stated Complaint: 201, [facility] ED Provider: Koby Pace Discharge Problem: Alcohol withdrawal Patient Disposition: Admitted As Inpatient Forms Stand Alone Forms: [facility], Suicide Prevention Resources Prescriptions Prescriptions: No Action No Known Home Medications Referrals Referrals: PCP,NO [Primary Care Provider] -
[2024-02-14 19:08] LABS: Amphetamines+Metham, Urine Neg (Neg); Barbiturates, Urine Neg (Neg); Benzodiazepine, Urine Neg (Neg); Cocaine, Urine Neg (Neg); Fentanyl, Urine Neg (Neg); MDMA (Ecstacy), Urine Neg (Neg); Marijuana, Urine Neg (Neg); Methadone, Urine Neg (Neg); Opiate, Urine Neg (Neg); Phencyclidine, Urine Neg (Neg)
[2024-02-14] MEDS ORDERED: PNEUMOCOCCAL VACCINE (PCV20) 20-VAL CONJ-DIP CRM/PF 0.5 ML SYR IM ONE (20:12)
[2024-02-14] MEDS: LORazepam 1 MG TAB PO PRN (20:24)
[2024-02-14] MEDS: NICOTINE 14 MG/24 HR PATCH TD SCH (20:24)
[2024-02-15] MEDS: ONDANSETRON INJ 2 MG/ML 2 ML VIAL IV PRN (05:09)
[2024-02-15] MEDS: LORazepam 1 MG TAB PO PRN (05:09)
[2024-02-15 06:49] LABS: Basophils # (auto) 0.04 K/uL (0.00-0.20); Basophils % (auto) 0.5 %; Eosinophils % (auto) 1.3 %; Hematocrit (blood only) 40.9 % (42.0-52.0); Immature Granulocytes # (auto) 0.02 K/uL (0.01-0.20); Immature Granulocytes % (auto) 0.3 %; Lymphocytes # (auto) 1.39 K/uL (1.20-3.40); Lymphocytes % (auto) 18.4 %; Mean Corpuscular Hemoglobin 32.8 pg (25.0-34.0); Mean Corpuscular Hgb Conc 34.2 g/dL (32.0-36.0); Mean Corpuscular Volume 95.8 fL (80.0-100.0); Mean Platelet Volume 8.8 fL (9.4-12.4); Monocytes # (auto) 0.52 K/uL (0.11-0.59); Monocytes % (auto) 6.9 %; Neutrophils % (auto) 72.6 %; Platelet Count 225 K/uL (130-400); RDW Coefficient of Variation 13.8 % (11.5-14.5); RDW Standard Deviation 48.7 fL (36.4-46.3); Red Blood Count 4.27 M/uL (4.70-6.10); White Blood Count 7.57 K/ul (4.8-10.8)
[2024-02-15 07:20] LABS: Albumin Level 4.1 gm/dl (3.4-5.0); BUN Creatinine Ratio 15.5 (10-20); Bilirubin,Total 1.2 mg/dl (0.2-1.0); Creatinine Clr Calc Pharmacy 124.1 ml/min; Est GFR (African American) 132.3 ml/min; Est GFR (Non-African American) 114.1 ml/min; Globulin 2.1 gm/dl (2.5-4.0); Magnesium 1.7 mg/dl (1.7-2.4); Potassium 4.7 mmol/L (3.5-5.1); Total Protein 6.2 gm/dl (6.0-8.3)
[2024-02-15 07:22] LABS: INR 1.1 (0.9-1.1); Prothrombin Time 11.4 Seconds (9.0-12.0)
[2024-02-15] MEDS: THIAMINE HCL 100 MG TAB PO SCH (08:50)
[2024-02-15] MEDS: FOLIC ACID 1 MG TAB PO SCH (08:50)
[2024-02-15] MEDS ORDERED: chlordiazePOXIDE ALCOHOL WITHDRAWL 50MG PO STA (10:59)
--- NOTE | 2024-02-15 11:22 | Psychiatric Consultation ---
Date of Consultation February 15, 2024 Impression / Recommendations Impression 43 yo man with history of polysubstance use disorder, alcohol use disorder, unspecified depression admitted for alcohol withdrawal after calling police and asking to be brought to the hospital for SI with thoughts of shooting himself. Psychiatry consulted for risk assessment. Diagnostically consistent with alcohol use disorder as well as unspecified depression likely a combination of substance-induced as well as adjustment disorder with depressed mood. Acute risk of self-harm is low given denial of SI, future-oriented, deterrents to SI, lack of access to lethal means ( confirmed) and no longer with intoxication. Chronic risk of self-harm and harm to others is high if he continues to use alcohol given now second episode of SI developing in context of intoxication and remains precontemplative about seeking treatment. Substance use treatment is the most significant modifiable risk factor to reduce acute and chronic risk. He does not meet 302 criteria for involuntary treatment since he is denying SI and no evidence for underlying major psychiatric condition (in [place] an individual cannot be committed for involuntary treatment for substance use disorders through the medical system, can only occur through the legal system as court mandated treatment). Explored with him options to reduce his acute and chronic risk including voluntary psychiatric treatment, residential substance use treatment, outpatient IOP substance use dual diagnosis treatment or AA. He declined all of these services. He is willing to start sertraline to treat any depression symptoms that may be contributing to his alcohol use and naltrexone for alcohol use disorder. Unfortunately he doesn't have a PCP so I do worry about the likelihood he will remain on these medications if they are helpful, discussed some community resources he could consider for PCP follow-up. Overall, I spent a total of 60 minutes with this case including review of chart records, review of labwork, direct evaluation of the patient at bedside, counseling the patient, discussion of the patient with the Nurse and with the hospitalist provider, discussion with the psychiatric liason during clinical rounds, review of collateral historian information from the family and documentation in the electronic health record. (1) Alcohol use disorder: (2) Depression, unspecified: Plan -He can discharge AMA if he chooses this, doesn't meet involuntary psychiatric criteria at this time -1-on-1 and suicide precautions can be discontinued -Consider sertraline 50mg qd and naltrexone 50mg daily. -Encourage him to have referrals for PCP options -Encouraged him to consider [facility] and reviewed that funding is available for this, he declines referral at this time but will consider -Psych liason RN confirmed that he has no access to lethal means (guns remained secured outside the home) Psych History Identifying Data 43 yo man with history of polysubstance use disorder, alcohol use disorder, unspecified depression admitted for alcohol withdrawal after calling police and asking to be brought to the hospital for SI with thoughts of shooting himself. Psychiatry consulted for risk assessment. Chief Complaint "I just drank a lot and got all jammed up". History of Present Illness Trevor was admitted for alcohol withdrawal after reportedly drinking a lot of alcohol, developing SI with thoughts to shoot himself vs having gun to shoot himself and then called police for help who brought him to the hospital. In ED triage he reported that he thought "today was going to be his last day". While in ED he was noted to be intoxicated and then started to develop withdrawal symptoms. His WESLEY was elevated at 289.6. On admission reported to provider that he has been using cocaine, marijuana and ecstasy. UDS negative for all except alcohol. Today he is fully oriented. Has been drinking alcohol most days, typically about a gallon when he drinks, states this is in the evenings after work. He denies current SI reporting that he thinks he must have said this due to being intoxicated. Explains "my brain just wasn't working right". He denies that he ever held a gun to his head and doesn't recall making the previous statements and denies having any access to guns. He was agreeable to allowing psych liason to confirm no access to guns with his . He was seen under very similar circumstances for psychiatric consult in December 2023. Since discharge he did not attend any substance use treatment, did not ever take the naltrexone that was prescribed nor is he attending AA. Reports he's continuing to work doing [employer] and he and his do ok financially but have been struggling with bills lately. He reports some possible mild depression symptoms but doesn't identify any hopelessness nor anhedonia, largely symptoms of stress from bills and drinking alcohol. He wants to stop drinking but has struggled to be motivated to take steps toward meaningful change. Reviewed options for treatment and utilizing motivational interviewing, he is not interested in any referrals at this time. He feels he needs to keep working because any type of treatment in which he is away, even for more than a few days, will cause bills to pile up and he wants to avoid this. Discussed funding sources available through [facility], that treatment could likely be free, he remains uninterested. Reviewed free clinic in [facility], he reports he makes too much income to access care there. He might be willing to consider [facility] in the future, discussed that [facility] may able to fund this so he could access these services at low or no cost. Hopeful he can be discharged today. Allergies Allergy/AdvReac Type Severity Reaction Status Date / Time chlordiazepoxide AdvReac Unknown DELIRIUM Verified 12/22/23 09:55 Home Medications Medication Instructions Recorded Confirmed Type No Known Home Medications 12/22/23 02/14/24 History Patient History Medical History Mood disorder Alcohol abuse Social History Smoking Status: Current every day smoker Tobacco Type: Cigarettes Cigarettes Per Day: 20; Do You Dip or Chew Tobacco: No; Hx Alcohol Use: Yes Alcohol type: hard liquor Hx Substance Use: Yes Last Used Substance: Days (ago) Last Used Substance Other:: Cocaine, months ago Substance Use Type Other:: THC daily Preferred Language: Korean Communication Ability: Effective Frame Trimmer Required: No Beliefs That Will Affect Care: None Current Living Situation: Spouse Current Living Situation Comment: with Feels Safe at Home: Yes Assistive Devices: None Physical Exam Psychiatric: Orientation: alert and oriented x 3 Apperance: appropriately dressed and appropriately groomed Eye Contact: good eye contact Motor Behavior: no abnormal motor movements Speech: normal rate/rhythm/volume of speech Affect: + anxious affect (about bill for hospitalization, wants to get back to work ) Mood: + depressed mood Thought Process: goal directed thought process Thought Content: reality based without delusions Suicidal Thoughts: denies suicidal thoughts Homicidal Thoughts: denies homicidal thoughts Hallucinations: no auditory hallucinations and no visual hallucinations Cognition: attention grossly intact and language grossly intact Estimated Intelligence: consistent with education level Insight: + fair insight (but not at stage of change yet where he wants to stop drinking) Judgment: + limited judgement Vital Signs (Past 24 Hours): Last Vital Signs Temp 36.7 C 02/15/24 07:38 Pulse 97 H 02/15/24 07:38 Resp 14 02/15/24 07:38 BP 137/87 02/15/24 07:38 Pulse Ox 95 02/15/24 07:38 O2 Del Method Room Air 02/15/24 07:38 Results & Data (PSY) Medications Administered Folic Acid (Folic Acid 1 Mg Tab) 1 mg PO [facility] Stop: 03/16/24 08:59 Last Admin: 02/15/24 08:50 Dose: 1 mg Documented By: CHERI Lactated Ringer's (Lr) 1,000 mls @ 100 mls/hr IV .Q10H [facility] Stop: 03/15/24 17:29 Last Admin: 02/15/24 02:24 Dose: 100 mls/hr Documented By: ANA MARIA Infusion: 02/15/24 02:24 Dose: Infused Documented By: ANA MARIA Admin: 02/14/24 18:40 Dose: 100 mls/hr Documented By: ANGEL Pantoprazole Sodium 40 mg/ (Syringe) 10 mls @ 5 mls/min IV DAILY@1100 [facility] Stop: 03/15/24 17:39 Last Admin: 02/14/24 18:40 Dose: 5 mls/min Documented By: ANGEL Lorazepam (Lorazepam 1 Mg Tab) 1 mg PO UD PRN; Protocol PRN Reason: EtOH Withdrawal AWSS Score 6,7 Stop: 03/15/24 17:21 Last Admin: 02/15/24 08:55 Dose: 1 mg Documented By: Admin: 02/15/24 05:09 Dose: 1 mg Documented By: ANA MARIA Lorazepam (Lorazepam 1 Mg Tab) 2 mg PO UD PRN; Protocol PRN Reason: EtOH Withdrawal AWSS Score 8,9 Stop: 03/15/24 17:21 Last Admin: 02/14/24 20:24 Dose: 2 mg Documented By: ANA MARIA Miscellaneous (Remove Nicoderm Patch) 1 each N/A DAILY@0859 [facility] Stop: 03/16/24 08:58 Last Admin: 02/15/24 08:49 Dose: 1 each Documented By: CHERI Nicotine (Nicotine 14 Mg/24 Hr Patch) 1 patch TD [facility] Stop: 03/15/24 19:59 Last Admin: 02/15/24 08:50 Dose: 1 patch Documented By: Admin: 02/14/24 20:24 Dose: 1 patch Documented By: ANA MARIA Ondansetron HCl (Ondansetron Inj 2 Mg/Ml 2 Ml Vial) 4 mg IV Q6H PRN PRN Reason: Nausea Stop: 03/15/24 18:59 Last Admin: 02/15/24 05:09 Dose: 4 mg Documented By: ANA MARIA Thiamine HCl (Thiamine Hcl 100 Mg Tab) 100 mg PO QAM ANGELIC Stop: 03/16/24 08:59 Last Admin: 02/15/24 08:50 Dose: 100 mg Documented By: CHERI Coding Level of Care Code 91079 IN/OBS CONSULT LVL 4,60M Diagnoses Alcohol use disorder F10.90 Depression, unspecified F32.A
[2024-02-15] MEDS: chlordiazePOXIDE HCl 25 MG CAP PO SCH (11:28)
[2024-02-16] MEDS ORDERED: chlordiazePOXIDE HCl 25 MG CAP PO SCH (13:00)
[2024-02-17] MEDS ORDERED: chlordiazePOXIDE HCl 25 MG CAP PO SCH (13:00)
== END 2024-02-15 14:30 | disposition left against medical advice (07) | DRG 894 ==
LOC: ED 14:47 → 2E 17:27 → SUATTDRO 17:27 → 2E 19:01

== ENCOUNTER 2024-03-05 03:19 | Inpatient (IN) ==
[2024-03-05 04:24] LABS: Basophils # (auto) 0.04 K/uL (0.00-0.20); Basophils % (auto) 0.5 %; Eosinophils # (auto) 0.22 K/uL (0.00-0.50); Eosinophils % (auto) 2.6 %; Hematocrit (blood only) 42.6 % (42.0-52.0); Hemoglobin 14.7 g/dl (14.0-18.0); Immature Granulocytes # (auto) 0.02 K/uL (0.01-0.20); Immature Granulocytes % (auto) 0.2 %; Lymphocytes # (auto) 3.85 K/uL (1.20-3.40); Lymphocytes % (auto) 45.9 %; Mean Corpuscular Hemoglobin 32.8 pg (25.0-34.0); Mean Corpuscular Hgb Conc 34.5 g/dL (32.0-36.0); Mean Corpuscular Volume 95.1 fL (80.0-100.0); Mean Platelet Volume 8.7 fL (9.4-12.4); Monocytes # (auto) 0.56 K/uL (0.11-0.59); Monocytes % (auto) 6.7 %; Neutrophils % (auto) 44.1 %; Platelet Count 359 K/uL (130-400); RDW Coefficient of Variation 13.7 % (11.5-14.5); Red Blood Count 4.48 M/uL (4.70-6.10); White Blood Count 8.39 K/ul (4.8-10.8)
[2024-03-05] MEDS: diazePAM 5 MG/ML 10ML VIAL IV SCH (04:42)
[2024-03-05] MEDS: SODIUM CHLORIDE 0.9% 1,000 ML IV SCH (04:42)
[2024-03-05 04:44] LABS: Alanine Aminotransferase 27 U/L (7-52); Albumin Globulin Ratio 1.8 (0.9-2); Albumin Level 4.6 gm/dl (3.4-5.0); Alkaline Phosphatase 46 U/L (34-104); Anion Gap 11 (3-11); Aspartate Aminotransferase 34 U/L (13-39); Bilirubin,Total 0.4 mg/dl (0.2-1.0); Blood Urea Nitrogen 11 mg/dl (6-23); Calcium 8.5 mg/dl (8.6-10.3); Carbon Dioxide 26 mmol/L (21-32); Chloride 108 mmol/L (98-107); Est GFR (African American) 140.8 ml/min; Est GFR (Non-African American) 121.5 ml/min; Globulin 2.5 gm/dl (2.5-4.0); Glucose 90 mg/dl (70-99(Fasting)); Sodium 145 mmol/L (136-145); Total Protein 7.1 gm/dl (6.0-8.3)
--- NOTE | 2024-03-05 04:52 | Emergency Department Note ---
Impression & Plan Acute alcohol intoxication, Suicidal ideation, Alcohol use disorder ED Provider Note ED Provider Note NAME: JULISA JOVEL AGE:43 SEX: Male : 1980 ARRIVES VIA: Police INFORMANT: Patient, police ED PROVIDER(s): Monie De Leon DO CHIEF COMPLAINT: Mental health evaluation HPI: This is a 43-year-old male presents emergency room by police with a 302 warrant due to concern for need of mental health evaluation. Patient made statements of suicide with plan to son. Patient with history of alcohol abuse and has presented to the ER several times recently with acute intoxication. On sobering patient would declined any need for resources including both rehab or mental health related. Patient did receive Valium for withdrawal related symptoms recently as well. Patient denies any history of DTs or seizures related to alcohol withdrawal. Patient does admit to occasional substance abuse. Patient denies any trauma or injury. PAST MEDICAL HISTORY:See Below PAST SURGICAL HISTORY:See Below FAMILY HISTORY:See Below SOCIAL HISTORY:See Below HOME MEDICATIONS:See Below ALLERGIES:See Below VITALS:See Below PHYSICAL EXAMINATION: GENERAL: alert, well appearing, well nourished, no distress, non-toxic, HEAD: nc/at, healing superficial laceration noted to the central upper forehead, no other evidence of facial trauma EYE EXAM: normal conjunctiva, PERRL and EOM's grossly intact OROPHARYNX: no exudate, no erythema, lips, buccal mucosa, and tongue normal and mucous membranes are moist NECK: supple, no nuchal rigidity, no adenopathy, non-tender LUNGS: Clear to auscultation. Normal chest wall mechanics, no w/r/r HEART: no murmurs, S1 normal and S2 normal ABDOMEN: abdomen soft, non-tender, normo-active bowel sounds, no masses, no rebound or guarding. BACK: Back is symmetrical on inspection and there is no deformity, no midline tenderness, no CVA tenderness. SKIN: no rashes, petechiae, orbruising UPPER EXTREMITIES: upper extremities are grossly normal. FROM, nml pulses b/l. No evidence of trauma or deformity. LOWER EXTREMITIES: No pitting edema. FROM, nml pulses b/l. No evidence of trauma or deformity. NEURO EXAM: Normal sensorium, cranial nerves II-XII grossly intact, normal speech, no facial droop,nogross weakness of arms, no gross weakness of legs. Gross sensation intact. No ataxia. Vital Signs: reviewed and remarkable Differential Diagnosis: alcohol intoxication, substance abuse, hypoglycemia, electrolyte abnormalities, dysrhythmia, dehydration, CHI, ICH, as well as others were entertained. MEDICAL DECISION MAKING: THis is a 43 yo male who presents as a 302 warrant due to suicidal statements and gestures made to family. Patient found to have alcohol intoxication on arrival and has been here several times with week with significant alcohol intoxication. Patient with otherwise reassuring labs. GIven 302 warrant patient will need to be completely sober for further evaluation and this will take some time. GIven patient at higher risk for alcohol withdrawal symptoms, case discussed with the hospitalist team for additional evaluation and mgmt. Consultation(s): 045:Discussed with Dr. Liu, [place] hospitalist team, for additional evaluation and mgmt. ER Treatment Provided: See below Diagnostics Interpreted By Me: -ECG: nsr at 99, nml axis, nml intervals, no acute ST/T wave changes -Cardiac Monitoring: An order was placed for continuous cardiac monitoring. The monitor shows a rate of 96 with normal sinus rhythm. -Laboratory studies: As stated above and show below. Triage Nursing Note Reviewed Prior/Outside Records Reviewed - recent labs/imaging reviewed Past Med/Surg History Problem List (Updated 03/05/24 @ 04:52 by Monie De Leon DO) Suicidal ideation (Acute) Substance abuse (Acute) Depression, unspecified Hallucinations Alcohol withdrawal (Acute) Alcohol use disorder (Acute) Acute alcohol intoxication (Acute) Alcohol abuse (Acute) Alcohol intoxication (Acute) Alcohol intoxication (Acute) Alcohol overdose (Acute) Alcohol withdrawal (Acute) Chest tightness (Acute) Homicidal ideation (Acute) Nausea & vomiting (Acute) Pancreatitis (Acute) Pancreatitis (Acute) Rib fractures (Acute) Shortness of breath (Acute) Suicidal ideation (Acute) Medical History Mood disorder Alcohol abuse Social History Smoking Status: Current every day smoker Tobacco Type: Cigarettes Cigarettes Per Day: 20; Do You Dip or Chew Tobacco: No; Hx Alcohol Use: Yes Alcohol type: hard liquor Hx Substance Use: No Preferred Language: [place]dean Communication Ability: Effective Fish Net Stringer Required: No Beliefs That Will Affect Care: None Current Living Situation: Spouse Current Living Situation Comment: with Feels Safe at Home: Yes Assistive Devices: None Allergies Allergies Allergy/AdvReac Type Severity Reaction Status Date / Time chlordiazepoxide AdvReac Unknown DELIRIUM Verified 03/03/24 09:12 Home Meds Previous Rx's Medication Instructions Recorded folic acid 1 mg tablet 1 mg PO QAM #30 tabs 02/15/24 naltrexone 50 mg tablet 50 mg PO DAILY #30 tabs 02/15/24 sertraline 50 mg tablet 50 mg PO DAILY #30 tabs 02/15/24 thiamine HCl (vitamin B1) 100 mg 100 mg PO QAM #30 tabs 02/15/24 tablet Results & Data (ED) Vital Signs Vital Signs - 24 hr 03/05/24 03:58 03/05/24 04:08 03/05/24 04:08 Temperature 36.2 C L Temperature Source Oral Pulse Rate 88 Pulse Rate [Apical] 92 H Respiratory Rate 24 Blood Pressure [Right Arm] 128/91 Blood Pressure Mean [Right Arm] 103 Pulse Oximetry 100 100 Oxygen Delivery Method Room Air Room Air Laboratory Data 03/06/24 07:36 03/06/24 07:36 Lab Results 03/05/24 03/05/24 Range/Units 03:50 04:43 WBC 8.39 (4.8-10.8) K/ul RBC 4.48 L (4.70-6.10) M/uL Hgb 14.7 (14.0-18.0) g/dl Hct 42.6 (42.0-52.0) % MCV 95.1 (80.0-100.0) fL MCH 32.8 (25.0-34.0) pg MCHC 34.5 (32.0-36.0) g/dL RDW Std Deviation 48.0 H (36.4-46.3) fL RDW Coeff of Gonzalo 13.7 (11.5-14.5) % Plt Count 359 (130-400) K/uL MPV 8.7 L (9.4-12.4) fL Immature Gran % (Auto) 0.2 % Neut % (Auto) 44.1 % Lymph % (Auto) 45.9 % [place] % (Auto) 6.7 % Eos % (Auto) 2.6 % Baso % (Auto) 0.5 % Neut # (Auto) 3.70 (1.40-6.50) K/uL Lymph # (Auto) 3.85 H (1.20-3.40) K/uL [place] # (Auto) 0.56 (0.11-0.59) K/uL Eos # (Auto) 0.22 (0.00-0.50) K/uL Baso # (Auto) 0.04 (0.00-0.20) K/uL Immature Gran # (Auto) 0.02 (0.01-0.20) K/uL Sodium 145 (136-145) mmol/L Potassium 4.0 (3.5-5.1) mmol/L Chloride 108 H (98-107) mmol/L Carbon Dioxide 26 (21-32) mmol/L Anion Gap 11 (3-11) BUN 11 (6-23) mg/dl Creatinine 0.61 (0.6-1.4) mg/dl Est Cr Clr Drug Dosing Not Reportable Est GFR ( Amer) 140.8 ml/min Est GFR (Non-Af Amer) 121.5 ml/min BUN/Creatinine Ratio 18.0 (10-20) Glucose 90 (70-99(Fasting)) mg/dl POC Glucose 84 (70-99) mg/dl Calcium 8.5 L (8.6-10.3) mg/dl Total Bilirubin 0.4 (0.2-1.0) mg/dl AST 34 (13-39) U/L ALT 27 (7-52) U/L Alkaline Phosphatase 46 (34-104) U/L Total Protein 7.1 (6.0-8.3) gm/dl Albumin 4.6 (3.4-5.0) gm/dl Globulin 2.5 (2.5-4.0) gm/dl Albumin/Globulin Ratio 1.8 (0.9-2) Salicylates < 3.0 L (3.0-30) mg/dl Acetaminophen < 3 L (10-30) ug/ml Ethyl Alcohol mg/dL 441.1 H (<10.0) mg/dl Administered Medications Discontinued Medications Diazepam (Diazepam 5 Mg/Ml 10ml Vial) 10 mg IV Q1H ANGELIC Stop: 04/04/24 04:44 Last Admin: 03/05/24 04:42 Dose: 10 mg Documented By: LISSY Diazepam (Diazepam 5 Mg/Ml 10ml Vial) 5 mg IV Q1H PRN PRN Reason: Agitation Stop: 04/04/24 04:44 Last Admin: 03/05/24 13:20 Dose: 5 mg Documented By: Admin: 03/05/24 11:04 Dose: 5 mg Documented By: RENAE Sodium Chloride (Nss) 1,000 mls @ 125 mls/hr IV .Q8H ANGELIC Stop: 04/04/24 04:44 Last Infusion: 03/06/24 13:47 Dose: Infused Documented By: Admin: 03/06/24 10:44 Dose: 125 mls/hr Documented By: Infusion: 03/06/24 10:44 Dose: Infused Documented By: Admin: 03/06/24 03:41 Dose: 125 mls/hr Documented By: Infusion: 03/06/24 03:37 Dose: Infused Documented By: Admin: 03/05/24 19:49 Dose: 125 mls/hr Documented By: Infusion: 03/05/24 19:49 Dose: Infused Documented By: Admin: 03/05/24 12:21 Dose: 125 mls/hr Documented By: Infusion: 03/05/24 12:21 Dose: Infused Documented By: Admin: 03/05/24 04:42 Dose: 125 mls/hr Documented By: LISSY Multivitamins 10 ml/ Thiamine HCl 100 mg/ Folic Acid 1 mg/Sodium Chloride 1,011.2 mls @ 500 mls/hr IV .Q2H2M ONE Stop: 03/05/24 09:01 Last Infusion: 03/05/24 11:23 Dose: Infused Documented By: Admin: 03/05/24 07:18 Dose: 500 mls/hr Documented By: RENAE Folic Acid 1 mg/ Syringe 10 mls @ 5 mls/min IV [facility] Stop: 04/04/24 08:59 Last Admin: 03/06/24 08:34 Dose: 5 mls/min Documented By: Admin: 03/05/24 09:06 Dose: 5 mls/min Documented By: RENAE Thiamine HCl 100 mg/ Syringe 10 mls @ 2 mls/min IV QAM [facility] Stop: 04/04/24 08:59 Last Admin: 03/06/24 08:34 Dose: 2 mls/min Documented By: Admin: 03/05/24 09:02 Dose: 2 mls/min Documented By: RENAE Lorazepam 1 mg/ Syringe 1 mls @ 2 mls/min IV UD PRN; Protocol PRN Reason: EtOH Withdrawal AWSS Score 6,7 Stop: 04/04/24 06:31 Last Admin: 03/05/24 11:21 Dose: 2 mls/min Documented By: ANTHONY Lorazepam 3 mg/ Syringe 3 mls @ 2 mls/min IV ONCE PRN; Protocol PRN Reason: EtOH Withdrawal AWSS Score 10+ Last Admin: 03/05/24 11:01 Dose: 2 mls/min Documented By: RENAE Lorazepam (Lorazepam 1 Mg/1 Ml Syr Ed Inj Use) Confirm Administered Dose 2 mg .ROUTE .STK-MED ONE Stop: 03/05/24 10:59 Last Admin: 03/05/24 11:32 Dose: Not Given Documented By: ANTHONY Lorazepam (Lorazepam 2 Mg/1 Ml Vial) 1 mg IV UD PRN; Protocol PRN Reason: EtOH Withdrawal AWSS Score 6,7 Stop: 04/04/24 15:04 Last Admin: 03/05/24 18:47 Dose: 1 mg Documented By: DARIAN Magnesium Oxide (Magnesium Oxide 400 Mg Tab) 400 mg PO ONE ONE Stop: 03/06/24 10:06 Last Admin: 03/06/24 10:44 Dose: 400 mg Documented By: PARKER Multivitamins (Multivitamin Tab) [facility] Stop: 04/04/24 08:59 Last Admin: 03/06/24 08:33 Dose: 1 tab Documented By: Admin: 03/05/24 11:33 Dose: Not Given Documented By: ANTHONY Ondansetron HCl (Ondansetron Inj 2 Mg/Ml 2 Ml Vial) 4 mg IV Q6H PRN PRN Reason: Nausea Stop: 04/04/24 06:31 Last Admin: 03/05/24 13:19 Dose: 4 mg Documented By: ANTHONY Discharge Plan Visit Data Chief Complaint: Mental Health Evaluation Stated Complaint: [facility] ED Provider: Monie De Leon Discharge Problem: Acute alcohol intoxication, Suicidal ideation, Alcohol use disorder Patient Disposition: Admitted As Inpatient Discharge Instructions Interventions: ED Discharge Assessment Last Done: 03/05/24 06:34
--- NOTE | 2024-03-05 05:00 | History & Physical Report ---
Date of Service March 05, 2024 Assessment & Plan (1) Suicidal ideation: Plan: Reportedly SI with plan. 302 obtained. With patient's 302 status for SI with plan and high likelihood for alcohol withdrawal hospitalist service was consulted for admission. psych consult - appreciate recs safe tray, suicide precautions 302, cannot leave AMA (2) Substance abuse: Plan: History of alcohol use disorder. Drinking significantly increased since 's incarceration. Drinking about a gallon of vodka daily. Given 10 mg IV Valium in the ED. EtOH 441. May be an aspect of polysubstance use. UDS is pending. Monitor for signs of severe withdrawal as patient likely with high tolerance may enter withdrawal despite elevated blood alcohol level. Low threshold for IV phenobarb load. tele unit - ICU nursing assignment requested as patient may need IV phenobarb Valium 5 mg IV PRN for agitation AWSS - active protocol UDS pending IV folate, IV thiamine, multivitamin (3) Hallucinations: Plan: Per nursing. Cannot confirm with patient. Monitor for severe withdrawal. (4) Depression, unspecified: Plan: See above (5) Alcohol withdrawal: Plan: See above (6) Alcohol use disorder: Plan: See above (7) Acute alcohol intoxication: Plan: See above Plan Code status: full DVT ppx: SCDs FENGI: regular, safe tray, IVF @ 125 mL/hr, ordered banana bag Dispo: tele unit - requested ICU nursing assignment as patient may need IV phenobarb, 302 obtained, likely will need inpatient psych/rehab History of Present Illness Primary Care Provider: NO PCP 43 y/o male with a history of AUD brought in by police after his son obtained a 302 for suicidal ideation with plan. Patient has been seen in the [facility] ED several times over the last week for acute agitation and alcohol intoxication. Patient has declined mental health or rehab resources and requested discharge home. Did need several doses of valium at prior visits for agitation. Per nursing patient was dressed in a suit, intoxicated, with plans to kill himself. His was recently incarcerated which has triggered an exacerbation of his alcohol use disorder. He may have been hallucinating bats earlier, unable to confirm. Patient may have a polysubstance intoxication. UDS pending. History obtained from chart review, ED attending, and nursing staff. Patient received 10 mg Valium IV and is relatively sedated at present. Allergies Allergy/AdvReac Type Severity Reaction Status Date / Time chlordiazepoxide AdvReac Unknown DELIRIUM Verified 03/03/24 09:12 Home Medications Medication Instructions Recorded Confirmed Type folic acid 1 mg tablet 1 mg PO QAM #30 tabs 02/15/24 03/03/24 Rx naltrexone 50 mg tablet 50 mg PO DAILY #30 tabs 02/15/24 03/03/24 Rx sertraline 50 mg tablet 50 mg PO DAILY #30 tabs 02/15/24 03/03/24 Rx thiamine HCl (vitamin B1) 100 mg 100 mg PO QAM #30 tabs 02/15/24 03/03/24 Rx tablet Past Med/Surg History Problem List (Updated 03/05/24 @ 04:52 by Monie De Leon DO) Suicidal ideation (Acute) Substance abuse (Acute) Depression, unspecified Hallucinations Alcohol withdrawal (Acute) Alcohol use disorder (Acute) Acute alcohol intoxication (Acute) Alcohol abuse (Acute) Alcohol intoxication (Acute) Alcohol intoxication (Acute) Alcohol overdose (Acute) Alcohol withdrawal (Acute) Chest tightness (Acute) Homicidal ideation (Acute) Nausea & vomiting (Acute) Pancreatitis (Acute) Pancreatitis (Acute) Rib fractures (Acute) Shortness of breath (Acute) Suicidal ideation (Acute) Medical History Mood disorder Alcohol abuse Social History Smoking Status: Current every day smoker Tobacco Type: Cigarettes Cigarettes Per Day: 20; Do You Dip or Chew Tobacco: No; Hx Alcohol Use: Yes Alcohol type: hard liquor Hx Substance Use: Yes Last Used Substance: Days (ago) Last Used Substance Other:: Cocaine, months ago Substance Use Type Other:: THC daily Preferred Language: Yoruba Communication Ability: Effective Deodorizer Operator Required: No Beliefs That Will Affect Care: None Current Living Situation: Spouse Current Living Situation Comment: with Feels Safe at Home: Declines to Answer Assistive Devices: None Review of Systems 2 Review of Systems: Unable to obtain Physical Exam 2 Physical Exam: Gen: older than stated age appearing patient in NAD HEENT: AT NC MMM Resp: no increased work of breathing CV: clinically well perfused Abd: non-distended MSK: no obvious deformities Skin: no rashes or bruising Neuro: alert and oriented Psych: appropriate mood and affect Results & Data Results & Data Vital Signs (Past 12 Hours) Vital Signs Temp Pulse Pulse Resp BP Pulse Ox O2 Del Method 03/05/24 04:08 100 Room Air 03/05/24 04:08 36.2 C L 92 H 24 128/91 100 Room Air 03/05/24 03:58 88 Laboratory Results 03/05/24 03:50 03/05/24 03:50 Supervising Physician Co-Signing Physician Notes Patient seen and examined, chart reviewed, case discussed with Dr. Toscano and I agree with the assessment and plan as above Patient is a 43yo male with history of heavy EtOH use presenting with acute intoxication + suicidal comments with plan [address]. Patient brought in by police On exam he is sedated, NAD Skin - intact +S1/S2, regular Lungs CTA Abd soft, ND Labs and images reviewed [id number] Assessment/Plan -Management of impending EtOH withdrawal- Ativan PRN per [facility] protocol. Consider phenobarbital vs Valium initially should patient begin to show signs of withdrawal -Psychiatry consultation appreciated for 302 warrant -Maintain suicide precautions -Remainder as above Resident Activity Tracking Resident Involvement: Resident Care Provided Care Provided: Adult Hospital Medicine
[2024-03-05 05:01] LABS: Acetaminophen < 3 ug/ml (10-30); Salicylate < 3.0 mg/dl (3.0-30)
[2024-03-05] MEDS ORDERED: Ativan IV Alcohol Withdrawal--Active Protocol IV PRN (06:32)
[2024-03-05] MEDS ORDERED: ACETAMINOPHEN 325 MG TAB PO PRN (06:32)
[2024-03-05] MEDS ORDERED: LORazepam 2 MG in SYRINGE 1 ML IV PRN (06:32)
--- NOTE | 2024-03-05 06:55 | Billing Data ---
Date of Service March 05, 2024 Coding Level of Care Code 82461 INT INP/OBS CARE
[2024-03-05] MEDS: MULTI-VITAMIN INFUSION 10 ML, THIAMINE HCL 100 MG, FOLIC ACID 1 MG in SODIUM CHLORIDE 0... IV ONE (07:18)
[2024-03-05] MEDS: THIAMINE HCL 100 MG in SYRINGE 9 ML IV SCH (09:02)
[2024-03-05] MEDS: FOLIC ACID 1 MG in SYRINGE 9.8 ML IV SCH (09:06)
[2024-03-05] MEDS: LORazepam 3 MG in SYRINGE 1.5 ML IV PRN (11:01)
[2024-03-05] MEDS: diazePAM 5 MG/ML 10ML VIAL IV PRN (11:04)
--- NOTE | 2024-03-05 11:13 | Hospitalist Progress Note ---
Date of Service March 05, 2024 Assessment & Plan (1) Alcohol withdrawal: Plan: EtOH 441 on admission. - History of alcohol use disorder. - Drinking significantly increased since 's recent incarceration. - Drinking about a gallon of vodka daily. - May be an aspect of polysubstance use. UDS is negative/pending. - Monitor for signs of severe withdrawal as patient likely with high tolerance may enter withdrawal despite elevated blood alcohol level. Valium 5 mg IV PRN for agitation AWSS - active protocol IV folate, IV thiamine, multivitamin (2) Suicidal ideation: Plan: Reportedly SI with plan. 302 obtained. With patient's 302 status for SI with plan and high likelihood for alcohol withdrawal hospitalist service was consulted for admission. Psych consult - appreciate recs 302 warrant was reliquished around 18:45 on 03/05 as the patient was alert, oriented, responds appropriately, and was aware of the consequences of his actions. He is no longer a risk to himself or others at this time. (3) Hallucinations: Plan: Patient intermittently reports seeing bats fly around his room Monitor for signs of severe alcohol withdrawal Plan Reevaluated the patient multiple times throughout the day Discussed case with psych liaison Relinquished 302 order Code status: full DVT ppx: SCDs Admission and Anticipated Discharge Date Admission Date: March 05, 2024 Supervising Physician Co-Signing Physician Notes Patient was seen and examined independently I discussed the case with Bita Segura PAC I reviewed pertinent past medical social family history and also the plan of care and agree with the plan of care. Patient brought in on a 302 warrant but he is inebriated at the time. We reevaluate the patient at 6:45 PM where he was awake he was appropriate he said he was not suicidal that he has a plan for safety and will have follow-up. However he was shaky and we convince the patient to stay for medical alcohol withdrawal treatment. At that time he met the psychiatric liaison and relinquish the 302 warrant due to the patient's no longer being suicidal at rest to himself. He was visibly tremulous but he was awake alert and oriented he was having a cohesive conversation with me understanding risks and benefits of his decisions Any exceptions will be noted below Subjective Patient seen and and evaluated at bedside in ED this morning. He reports visual hallucinations of bats. He is significantly tremulous, demonstrates some agitation, and stutters while speaking. Patient continues to request to go home and states "this is my normal". Valium and Ativan given. Patient reevaluated in the afternoon. He was sleeping comfortably at that time. Per nursing, patient still has tremors and stutters when awake. He desats when sleeping secondary to snoring; stable on 2L via NC when sleeping. Asked to reevaluate the patient around 18:45 in regards to his 302 disposition. I reexamined the patient with Dr. Dominguez. Patient was alert and fully oriented at this time. He reports that he is not suicidal and his suicidal remarks were "from drunken stupor." Patient continued to report that he would like to go home, however, he remained tremulous. His stuttering was improved at that time. We discussed our concern of medical alcohol withdrawal, and the patient agreed to stay hospitalized for treatment overnight. His 302 warrant was reliquished at this time as the patient is alert, oriented, responds appropriately, and is aware of the consequences of his actions. He is no longer a risk to himself or others at this time. Physical Exam Physical Exam: General: Tremulous. Stuttering with speech. Appears older than stated age. Skin: The skin was without rashes, erythema, edema, or bruising. Cardiac: Regular rate and rhythm without murmurs gallops or rubs. Pulm: Clear to auscultation bilaterally without wheezes, rales or rhonchi. No respiratory distress. 98% on room air. Abdominal: Soft, nontender, nondistended. Bowel sounds present. Neuro: A&O x3. No focal neurological deficits. Results & Data Results & Data Vital Signs (Past 12 Hours) Vital Signs Temp Pulse Pulse Resp BP BP Pulse Ox 03/05/24 10:48 91 H 20 106/66 94 03/05/24 09:00 117/73 93 03/05/24 08:42 90 18 94 03/05/24 08:33 85 18 95 03/05/24 08:30 94/67 L 03/05/24 08:27 88 18 93 03/05/24 08:18 84 19 92 03/05/24 08:15 99/77 L 03/05/24 08:00 118/82 03/05/24 07:54 86 15 94 03/05/24 07:45 95 H 20 96 03/05/24 07:45 118/82 03/05/24 07:30 85 21 94 03/05/24 07:30 112/74 03/05/24 07:15 85 21 95 03/05/24 07:15 105/73 03/05/24 07:06 93 H 21 94 03/05/24 07:00 98/66 L 03/05/24 06:58 89 03/05/24 06:48 85 20 94 03/05/24 06:45 109/73 03/05/24 06:45 83 20 96 03/05/24 06:35 91 H 19 111/73 92 03/05/24 06:35 90 03/05/24 06:30 85 19 93 03/05/24 06:30 111/73 03/05/24 06:15 109/73 03/05/24 06:15 90 19 86 L 03/05/24 06:09 87 20 94 03/05/24 06:00 86 15 111/74 94 03/05/24 05:45 90 20 98 03/05/24 05:45 115/77 03/05/24 05:30 89 20 95 03/05/24 05:30 102/64 03/05/24 05:15 92 H 20 94 03/05/24 05:15 104/65 03/05/24 05:06 93 H 20 94 03/05/24 05:00 100/65 03/05/24 04:51 95 H 22 93 03/05/24 04:48 98 H 21 92 03/05/24 04:45 128/86 03/05/24 04:15 121/87 03/05/24 04:15 90 19 97 03/05/24 04:08 100 03/05/24 04:08 36.2 C L 92 H 24 128/91 100 03/05/24 04:03 91 H 18 99 03/05/24 04:00 128/91 03/05/24 03:58 88 O2 Del Method 03/05/24 10:48 Room Air 03/05/24 09:00 Room Air 03/05/24 08:42 03/05/24 08:33 Room Air 03/05/24 08:30 03/05/24 08:27 03/05/24 08:18 03/05/24 08:15 03/05/24 08:00 03/05/24 07:54 03/05/24 07:45 Room Air 03/05/24 07:45 03/05/24 07:30 Room Air 03/05/24 07:30 03/05/24 07:15 Room Air 03/05/24 07:15 03/05/24 07:06 Room Air 03/05/24 07:00 03/05/24 06:58 03/05/24 06:48 03/05/24 06:45 03/05/24 06:45 03/05/24 06:35 Room Air 03/05/24 06:35 Room Air 03/05/24 06:30 03/05/24 06:30 03/05/24 06:15 03/05/24 06:15 03/05/24 06:09 03/05/24 06:00 Room Air 03/05/24 05:45 03/05/24 05:45 03/05/24 05:30 03/05/24 05:30 03/05/24 05:15 03/05/24 05:15 03/05/24 05:06 03/05/24 05:00 03/05/24 04:51 03/05/24 04:48 03/05/24 04:45 03/05/24 04:15 03/05/24 04:15 03/05/24 04:08 Room Air 03/05/24 04:08 Room Air 03/05/24 04:03 03/05/24 04:00 03/05/24 03:58 Laboratory Results Reviewed CBC Reviewed CMP Reviewed toxicology PG Care Time/CCT Total # of Minutes Spent Total Time Spent with Patient: Total time spent is greater than 50% in coordination of care (as documented) at patient's floor/unit and/or counseling patient: Coding Level of Care Code 35193 SUB INP/OBS CARE 3/50MIN Diagnoses Alcohol withdrawal F10.939 Suicidal ideation R45.851 Hallucinations R44.3
[2024-03-05] MEDS: LORazepam 1 MG in SYRINGE 0.5 ML IV PRN (11:21)
[2024-03-05 11:27] LABS: Amphetamines+Metham, Urine Neg (Neg); Barbiturates, Urine Neg (Neg); Benzodiazepine, Urine Pos (Neg); Cocaine, Urine Neg (Neg); Fentanyl, Urine Neg (Neg); MDMA (Ecstacy), Urine Neg (Neg); Marijuana, Urine Neg (Neg); Methadone, Urine Neg (Neg); Opiate, Urine Neg (Neg); Phencyclidine, Urine Neg (Neg)
[2024-03-05] MEDS: LORazepam 1 MG/1 ML SYR ED Inj Use ONE (11:32)
[2024-03-05] MEDS: MULTIVITAMIN TAB PO SCH (11:33)
[2024-03-05] MEDS: ONDANSETRON INJ 2 MG/ML 2 ML VIAL IV PRN (13:19)
[2024-03-05] MEDS ORDERED: LORazepam 2 MG/1 ML VIAL IV PRN (15:07)
[2024-03-05] MEDS: LORazepam 2 MG/1 ML VIAL IV PRN (18:47)
[2024-03-05 23:57] VITALS: RESP 18
[2024-03-06 03:37] VITALS: TEMP 97.9
[2024-03-06 08:06] LABS: Hematocrit (blood only) 35.5 % (42.0-52.0); Hemoglobin 12.2 g/dl (14.0-18.0); Mean Corpuscular Hgb Conc 34.4 g/dL (32.0-36.0); Mean Corpuscular Volume 95.9 fL (80.0-100.0); Mean Platelet Volume 8.6 fL (9.4-12.4); Platelet Count 274 K/uL (130-400); RDW Coefficient of Variation 13.2 % (11.5-14.5); RDW Standard Deviation 46.6 fL (36.4-46.3); White Blood Count 7.97 K/ul (4.8-10.8)
[2024-03-06 09:01] LABS: BUN Creatinine Ratio 12.3 (10-20); Creatinine Clr Calc Pharmacy 149.2 ml/min; Est GFR (African American) 144.7 ml/min; Est GFR (Non-African American) 124.9 ml/min; Magnesium 1.5 mg/dl (1.7-2.4); Potassium 3.8 mmol/L (3.5-5.1)
[2024-03-06] MEDS: MAGNESIUM OXIDE 400 MG TAB PO ONE (10:44)
[2024-03-06 11:30] VITALS: BP 127/76; PULSE 72; O2SAT 95
--- NOTE | 2024-03-06 19:35 | Discharge Summary ---
Discharge Summary Date of Service March 06, 2024 Principal Dx & Hospital Course #1 = Principal Diagnosis (1) Alcohol withdrawal: EtOH 441 on admission. - History of alcohol use disorder. - Drinking significantly increased since 's recent incarceration. - Drinking about a gallon of vodka daily. - May be an aspect of polysubstance use. UDS is negative/pending. - Monitor for signs of severe withdrawal as patient likely with high tolerance may enter withdrawal despite elevated blood alcohol level. Valium 5 mg IV PRN for agitation AWSS - active protocol IV folate, IV thiamine, multivitamin - Patient improved on 03/06, requesting to go home. Given resources for alcohol use disorder. - Patient does not have PCP. Recommended he establishes care with [facility]. (2) Suicidal ideation: Reportedly SI with plan. 302 obtained. With patient's 302 status for SI with plan and high likelihood for alcohol withdrawal hospitalist service was consulted for admission. Psych consult - appreciate recs 302 warrant was reliquished around 18:45 on 03/05 as the patient was alert, oriented, responds appropriately, and was aware of the consequences of his actions. He is no longer a risk to himself or others at this time. (3) Hallucinations: Patient intermittently reported seeing bats fly around his room Hallucinations resolved 03/06/2024 Plan CODE STATUS: Full code Admission HPI Per Admitting Provider 43 y/o male with a history of AUD brought in by police after his son obtained a 302 for suicidal ideation with plan. Patient has been seen in the [facility] ED several times over the last week for acute agitation and alcohol intoxication. Patient has declined mental health or rehab resources and requested discharge home. Did need several doses of valium at prior visits for agitation. Per nursing patient was dressed in a suit, intoxicated, with plans to kill himself. His was recently incarcerated which has triggered an exacerbation of his alcohol use disorder. He may have been hallucinating bats earlier, unable to confirm. Patient may have a polysubstance intoxication. UDS pending. History obtained from chart review, ED attending, and nursing staff. Patient received 10 mg Valium IV and is relatively sedated at present. Admission Exam Per Admitting Provider Gen: older than stated age appearing patient in NAD HEENT: AT NC MMM Resp: no increased work of breathing CV: clinically well perfused Abd: non-distended MSK: no obvious deformities Skin: no rashes or bruising Neuro: alert and oriented Psych: appropriate mood and affect Discharge Exam General: Tremulous, improved. Stuttering with speech resolved. Appears older than stated age. Skin: The skin was without rashes, erythema, edema, or bruising. Cardiac: Regular rate and rhythm without murmurs gallops or rubs. Pulm: Clear to auscultation bilaterally without wheezes, rales or rhonchi. No respiratory distress. 95% on room air. Abdominal: Soft, nontender, nondistended. Bowel sounds present. Neuro: A&O x3. No focal neurological deficits. Discharge Plan Discharge Items Patient Disposition: Home - Self-Care Reason For Visit: SI Discharge Diagnosis: Alcohol withdrawal, suicidal ideations (SI) Activity: Resume your previous activity Non-emergency contact: Primary Care Provider Call non-emergency contact if: you have any medication questions and your symptoms worsen Follow-up/Referrals: PCP,NO [Primary Care Provider] - Diet: Regular Addtl Attending Provider Instructions: Andrew Guzman were admitted to the hospital due to acute alcohol intoxication requiring medical alcohol withdrawal management and a 302 order because of suicidal ideations. Your 302 order was relinquished as you no longer were a threat to yourself or others. You were treated with medications to control your alcohol withdrawal. You have been given resources for seeking help - I strongly encourage you to use these. There are people who want to help you! I recommend you start a daily multivitamin. You can get these over the counter (OTC). Establish care with a PCP. I recommend trying the [facility] again; if they deny you due to too much income, you can ask them for assistance in finding a PCP. Please return to the hospital if you experience any of the following: worsening tremors/shaking, confusion, hallucinations, persistent vomiting, fever, agitation, seizure, chest pain, heart palpitations, difficulty breathing, or passing out. It was a pleasure taking care of you while you were in the hospital, Bita Segura PA-C Pending Studies at Discharge: No Stand-Alone Forms: [facility] evolso, Smoking Cessation Medications and DC Order Prescriptions: Continued thiamine HCl (vitamin B1) 100 mg Tablet 100 mg PO QAM Qty: 30 0RF folic acid 1 mg Tablet 1 mg PO QAM Qty: 30 0RF naltrexone 50 mg tablet 50 mg PO DAILY Qty: 30 0RF sertraline 50 mg tablet 50 mg PO DAILY Qty: 30 0RF Discharge Orders: Discharge Order (Routine); Ordered 03/06/24 Ordered By: Bita Talamantes/Other Patient Handouts: Alcohol Withdrawal: What to Expect, Addiction: Getting Help, Addiction Recovery Counseling, Suicide Know Self Warnings Admission Data Admit Date/Time: 03/05/24 05:05 Attending Provider: Raul Dominguez Admit Provider: Daphnie Toscano Primary Care Provider: PCP,NO Other Interventions: Discharge Summary Assessment (RN) Last Done: 03/06/24 13:28 Hospital Stay Data Consultations 03/06/24 11:02 Consult Behavioral Health Liaison Routine Pending Results Patient Have Any Pending Studies at Discharge: No Discharge Instructions Given to Patient (Per Discharging Provider) Mr. Carlson, Andrew were admitted to the hospital due to acute alcohol intoxication requiring medical alcohol withdrawal management and a 302 order because of suicidal ideations. Your 302 order was relinquished as you no longer were a threat to yourself or others. You were treated with medications to control your alcohol withdrawal. You have been given resources for seeking help - I strongly encourage you to use these. There are people who want to help you! I recommend you start a daily multivitamin. You can get these over the counter (OTC). Establish care with a PCP. I recommend trying the [facility] again; if they deny you due to too much income, you can ask them for assistance in finding a PCP. Please return to the hospital if you experience any of the following: worsening tremors/shaking, confusion, hallucinations, persistent vomiting, fever, agitation, seizure, chest pain, heart palpitations, difficulty breathing, or passing out. It was a pleasure taking care of you while you were in the hospital, Bita Segura PA-C Total Time Total Time Spent Total Time Spent (In Minutes): Greater than 30 minutes spent completing this discharge process including direct patient care, medication reconciliation, documentation, review of labs and images, and coordination of care. Coding Level of Care Code 13615 INP/OBS DISCH >30 MIN Diagnoses Alcohol withdrawal F10.939 Suicidal ideation R45.851 Hallucinations R44.3
[2024-03-07 08:23] LABS: 7-Aminoclonaz, Confirm NEGATIVE ng/mL (<25); Hydro-Alp Ur, GC/MS NEGATIVE ng/mL (<25); Hydroxyethylflurazepam, Conf NEGATIVE ng/mL (<50); Hydroxymidazolam Ur, GC/MS NEGATIVE ng/mL (<50); Hydroxytriazolam NEGATIVE ng/mL (<50); Lorazepam, Ur GC/MS 134 ng/mL (<50); Nordiazepam, Confirm 113 ng/mL (<50); Oxazepam Ur, GC/MS NEGATIVE ng/mL (<50); Temazepam, Confirm 490 ng/mL (<50)
== END 2024-03-06 14:19 | disposition home or self-care (01) | DRG 880 ==
LOC: ED 03:19 → EDINP 05:05 → SUATTDRO 05:05 → 2S 06:34